=== PATIENT | male | born 1965 | race Caucasian/White ===

== ENCOUNTER 2016-07-19 00:50 | Inpatient (IN) | payer MEDICAID ==
[2016-07-19] MEDS ORDERED: LORazepam 2 MG/ML INJ IVP ONE (01:02)
[2016-07-19] MEDS ORDERED: LORazepam 2 MG/ML INJ ONE (01:03)
[2016-07-19] MEDS ORDERED: ONDANSETRON 4 MG/2 ML VIAL IVP ONE (01:04)
[2016-07-19] MEDS ORDERED: NS 1,000 ML IV ONE (01:04)
[2016-07-19] MEDS ORDERED: ONDANSETRON 4 MG/2 ML VIAL ONE (01:05)
--- NOTE | 2016-07-19 01:11 | EDPHY ---
H & P Source: Patient, Family HPI/ROS: CHIEF COMPLAINT: Nausea, vomiting, abdominal pain HISTORY OF PRESENT ILLNESS: One-day history of persistent vomiting, 25 times, along with abdominal pain. Moderate to severe complaints that have steadily worsened. No hematemesis or hematochezia. Associated constipation. No fever chills. Patient admits to heavy vodka intake daily, but has been unable to keep anything down due to this. He does report some tremulous activity. No seizure-like activity. No headache. No chest pain or shortness of breath. No other associated complaints or modifying factors. REVIEW OF SYSTEMS: Ten systems reviewed and are negative unless otherwise noted in the HPI EXAMINATION: General Appearance: Alert, no distress , mild tremor Head: normocephalic, atraumatic Eyes: Pupils equal and round, no conjunctival pallor or injection ENT, Mouth: Mucous membranes moist Neck: Normal inspection, supple, non-tender Respiratory: scattered rhonchi. No consolidation Cardiovascular: Regular rate and rhythm Gastrointestinal: Abdomen is soft with moderate tenderness generalized, worse in the epigastrium. No tympany. No rigidity. mild guarding.Non-acute abdomen. Back: non-tender, no bony abnormalities Neurological: A&O, nonfocal, Mild tremor Skin: Warm and dry, no rash Extremities: Nontender, no pedal edema Psychiatric: Mood and affect normal DIFFERENTIAL DIAGNOSES: Including but not limited to acute pancreatitis, alcoholic gastritis, cirrhosis , colitis, diverticulitis, enteritis MDM: acute alcoholic pancreatitis with transaminitis, hyperbilirubinemia, thrombocytopenia, acute kidney injury. The patient is dehydrated clinically and by laboratory studies. Has significant tenderness to palpation of the abdomen indicated given the elevated creatinine, we will obtain a CT scan of the abdomen and pelvis without IV contrast. He remains hemodynamically stable. He is neither tachycardic nor tachypneic. He is normotensive. He is in no acute distress. At this time, Dr. Milan will assume Care of the patient. Please see her note for final disposition. Plan for admission to the hospital following CT scan SUPERVISION: Patient was evaluated in conjunction with the supervising physician. Please see their note for details. (Carlos Preston) Constitutional: Initial Vital Signs Temperature (C) 36.6 C 07/19/16 01:09 Heart Rate 103 H 07/19/16 01:09 Respiratory Rate 20 07/19/16 01:09 Blood Pressure 127/82 H 07/19/16 01:09 O2 Sat (%) 98 07/19/16 01:09 O2 Delivery Mode Nasal Cannula O2 (L/minute) 2 Allergies/Adverse Reactions: No Known Allergies Allergy (Unverified 07/19/16 01:08) Home Medications: Medication Instructions Recorded Advair 250/50 (*) 07/19/16 Chantix 1MG (*) 07/19/16 Citalopram 07/19/16 Oxycodone HCl 07/19/16 Ventolin Hfa Inhaler 07/19/16 traZODone 07/19/16 Medical Decision Making - Diagnostics Imaging: CT scan with IV contrast shows fatty liver, pancreas with calcifications without any inflammation, discussed with Dr. Philip Uriostegui of Radiology. (Elvira Milan) ED Course/Re-evaluation: ED PA DICTATION I evaluated and participated in the management of the patient. I also evaluated the patient independently. My co-signature indicates that I have reviewed this chart and I agree with the findings and plan of care as documented. My personal H&P findings include: 51-year-old man with heavy alcohol use who presents with abdominal pain, nausea and vomiting. Labs revealing alcoholic ketoacidosis and possibly pancreatitis. CT scan obtained shows fatty liver without any overt signs of acute pancreatitis. He will be admitted to the hospitalist service for IV hydration and pain control. I have discussed the case with Betzy lawrence who will admit him. (Elvira Milan) - Data Points Laboratory Results: Laboratory Results 07/19/16 01:14 07/19/16 01:14 07/19/16 01:14 WBC 7.26 10^3/uL (3.80-9.50) RBC 3.69 L 10^6/uL (4.40-6.38) Hgb 14.2 g/dL (13.7-17.5) Hct 38.6 L % (40.0-51.0) MCV 104.6 H fL (81.5-99.8) MCH 38.5 H pg (27.9-34.1) MCHC 36.8 H g/dL (32.4-36.7) RDW 11.9 % (11.5-15.2) Plt Count 55 L 10^3/uL (150-400) MPV 10.3 fL (8.7-11.7) Neut % (Auto) 83.7 H % (39.3-74.2) Lymph % (Auto) 4.5 L % (15.0-45.0) [place] % (Auto) 10.7 % (4.5-13.0) Eos % (Auto) 0.0 L % (0.6-7.6) Baso % (Auto) 0.4 % (0.3-1.7) Nucleat RBC Rel Count 0.0 % (0.0-0.2) Absolute Neuts (auto) 6.07 10^3/uL (1.70-6.50) Absolute Lymphs (auto) 0.33 L 10^3/uL (1.00-3.00) Absolute Monos (auto) 0.78 10^3/uL (0.30-0.80) Absolute Eos (auto) 0.00 L 10^3/uL (0.03-0.40) Absolute Basos (auto) 0.03 10^3/uL (0.02-0.10) Absolute Nucleated RBC 0.00 10^3/uL (0-0.01) Immature Gran % 0.7 % (0.0-1.1) Immature Gran # 0.05 10^3/uL (0.00-0.10) PT 14.2 SEC (12.0-15.0) INR 1.11 (0.83-1.16) APTT 28.0 SEC (23.0-38.0) Sodium 131 L mEq/L (134-144) Potassium 3.8 mEq/L (3.5-5.2) Chloride 74 L mEq/L (97-110) Carbon Dioxide 19 L mEq/l (22-31) Anion Gap 38 mEq/L (8-16) BUN 32 H mg/dL (7-23) Creatinine 1.7 H mg/dL (0.7-1.3) Estimated GFR 42 Glucose 286 H mg/dL (70-100) Calcium 8.1 L mg/dL (8.5-10.4) Total Bilirubin 4.1 H mg/dL (0.1-1.4) Conjugated Bilirubin 2.4 H mg/dL (0.0-0.5) Unconjugated Bilirubin 1.7 H mg/dL (0.0-1.1) AST 406 H IU/L (17-59) ALT 116 H IU/L (21-72) Alkaline Phosphatase 125 IU/L (38-126) Total Protein 7.3 g/dL (6.3-8.2) Albumin 4.6 g/dL (3.5-5.0) Lipase 1299.0 H IU/L (23-300) Medications Given: Discontinued Medications Fentanyl (Sublimaze) 75 mcg IV EDNOW ONE Stop: 07/19/16 01:45 Last Admin: 07/19/16 02:03 Dose: 75 mcg Sodium Chloride (Ns) 1,000 mls @ 0 mls/hr IV ONCE ONE PRN Reason: Wide Open Stop: 07/19/16 01:05 Last Admin: 07/19/16 01:15 Dose: 1,000 mls Lorazepam (Ativan Injection) 1 mg IVP EDNOW ONE Stop: 07/19/16 01:03 Last Admin: 07/19/16 01:23 Dose: 1 mg Morphine Sulfate (Morphine) 4 mg IVP EDNOW ONE Stop: 07/19/16 02:58 Last Admin: 07/19/16 03:08 Dose: 4 mg Ondansetron HCl (Zofran) 4 mg IVP EDNOW ONE Stop: 07/19/16 01:05 Last Admin: 07/19/16 01:23 Dose: 4 mg Departure - Departure Disposition: [facility] Inpatient Acute Clinical Impression: Transaminitis, Hyperbilirubinemia, Thrombocytopenia, Fatty liver, Alcoholic ketoacidosis Alcohol dependence Qualifiers: Substance use status: unspecified alcohol-induced disorder Qualifier Code: ( F10.29) Alcohol dependence with unspecified alcohol-induced disorder Abdominal pain Qualifiers: Abdominal location: generalized Qualifier Code: (R10.84) Generalized abdominal pain Nausea and vomiting Qualifiers: Vomiting type: bilious vomiting Qualifier Code: (R11.14) Bilious vomiting Alcoholic pancreatitis Qualifiers: Chronicity: acute Acute pancreatitis complication: unspecified Qualifier Code: (K85.20) Alcohol induced acute pancreatitis without necrosis or infection Condition: Fair
[2016-07-19 01:21] LABS: % IMMATURE GRANULYOCYTES 0.7 % (0.0-1.1); ABSOLUTE IMMATURE GRANULOCYTES 0.05 10^3/uL (0.00-0.10); ADD DIFF? NO; ADD MORPH? NO; ADD SCAN? NO; ATYPICAL LYMPHOCYTE FLAG 0 (0-99); FRAGMENT RBC FLAG 0 (0-99); HEMATOCRIT 38.6 % (40.0-51.0); HEMOGLOBIN 14.2 g/dL (13.7-17.5); LEFT SHIFT FLG 20 (0-99); LIPEMIA HEMOLYSIS FLAG 90 (0-99); MEAN CELL HEMOGLOBIN 38.5 pg (27.9-34.1); MEAN CELL HEMOGLOBIN CONCENTR. 36.8 g/dL (32.4-36.7); MEAN CELL VOLUME 104.6 fL (81.5-99.8); MEAN PLATELET VOLUME 10.3 fL (8.7-11.7); PLATELET CLUMPS FLAG 0 (0-99); PLATELET COUNT 55 10^3/uL (150-400); RED BLOOD CELL COUNT 3.69 10^6/uL (4.40-6.38); RED CELL DISTRIBUTION WIDTH 11.9 % (11.5-15.2)
[2016-07-19 01:33] LABS: ALANINE AMINOTRANSFERASE 116 IU/L (21-72); ALBUMIN 4.6 g/dL (3.5-5.0); ALKALINE PHOSPHATASE 125 IU/L (38-126); ANION GAP 38 mEq/L (8-16); ASPARTATE AMINOTRANSFERASE 406 IU/L (17-59); BILIRUBIN,TOTAL 4.1 mg/dL (0.1-1.4); BILIRUBIN-CONJUGATED 2.4 mg/dL (0.0-0.5); BILIRUBIN-UNCONJUGATED 1.7 mg/dL (0.0-1.1); CALCIUM 8.1 mg/dL (8.5-10.4); CARBON DIOXIDE 19 mEq/l (22-31); CHLORIDE 74 mEq/L (97-110); CREATININE 1.7 mg/dL (0.7-1.3); GLOMERULAR FILTRATION RATE 42; GLUCOSE 286 mg/dL (70-100); POTASSIUM 3.8 mEq/L (3.5-5.2); SODIUM 131 mEq/L (134-144); TOTAL PROTEIN 7.3 g/dL (6.3-8.2)
[2016-07-19 01:43] LABS: INR 1.11 (0.83-1.16); PROTIME(PATIENT) 14.2 SEC (12.0-15.0)
[2016-07-19] MEDS ORDERED: fentaNYL 100 MCG/2 ML INJ IV ONE (01:44)
[2016-07-19] MEDS ORDERED: ALBUTEROL 3 ML DEYVIAL IH PRN (04:12)
[2016-07-19] MEDS ORDERED: LORazepam 2 MG/ML INJ IVP PRN (04:19)
[2016-07-19] MEDS ORDERED: THIAMINE HCL 500 MG in NS 100 ML IV ONE (04:19)
--- NOTE | 2016-07-19 04:27 | PDGENHP ---
History and Physical - Chief Complaint vomiting - History of Present Illness Patient is 51/M with chronic alcohol use, COPD/asthma and depression who presents to the ED complaining of nausea and vomiting. On the day prior to presentation, patient reports feeling generalized malaise, but had normal p.o. intake and consumed is normal amount of vodka without incident. This morning he woke up with acute onset nausea and vomiting. He reports vomiting many times throughout the day (>15x) described as nonbloody and nonbilious, associated with mild epigastric and right upper quadrant abdominal pain. He he denies any associated fevers, chills, diarrhea. Over the course of the day he also developed a cough and sore throat. He reports pain with swallowing, which has made it difficult for him to swallow. He has been unable to maintain any p. O. intake throughout the day, so he decided to come to the ED for further evaluation. He denies any prior history of pancreatitis, reports daily continues alcohol use and had a history of withdrawal seizure about 3 years ago. On arrival to the ED patient was afebrile and hemodynamically stable. Labs revealed transaminitis, elevated lipase, elevated bilirubin and elevated BUN/ creatinine. He was given IV fluid hydration and pain control. CT abdomen pelvis was then obtained and revealed stigmata of chronic pancreatitis, but no fluid collection or free air. He was then admitted to the hospitalist service for further management. History Information - Allergies/Home Medication List Allergies/Adverse Reactions: No Known Allergies Allergy (Unverified 07/19/16 01:08) Home Medications: Advair 250/50 (*) 07/19/16 [Last Taken Unknown] Chantix 1MG (*) 07/19/16 [Last Taken Unknown] Citalopram 07/19/16 [Last Taken Unknown] Oxycodone HCl 07/19/16 [Last Taken Unknown] Ventolin Hfa Inhaler 07/19/16 [Last Taken Unknown] traZODone 07/19/16 [Last Taken Unknown] I have personally reviewed and updated: family history, medical history, social history, surgical history - Past Medical History Additional medical history: COPD/asthma. Chronic continuous alcohol use. Major depression - Surgical History Additional surgical history: Knee surgery - Family History Additional family history: ETOH use - Social History Smoking Status: Light smoker (Normally about 2 PPD x > 20 yrs, however actively trying to quit, now down to 2-5 cigarettes daily) Alcohol Use: Heavy (reports drinking about 10oz of vodka daily) Review of Systems ROS: 10pt was reviewed & negative except for what was stated in HPI & below Physical Exam Temp Pulse Resp BP Pulse Ox 36.9 C 106 H 18 127/92 H 90 L 07/19/16 04:22 07/19/16 04:22 07/19/16 04:22 07/19/16 04:22 07/19/16 04:22 O2 (L/minute) 0 Constitutional: no apparent distress, not in pain, other (thin) Eyes: PERRL, anicteric sclera, EOMI Ears, Nose, Mouth, Throat: hearing normal, ears appear normal, no oral mucosal ulcers, dry mucous membranes Cardiovascular: regular rate and rhythym, no murmur, rub, or gallop, pulses symmetric bilaterally, tachycardia, No JVD, No edema Peripheral Pulses: 2+: dorsalis-pedis (R), dorsalis-pedis (L) Respiratory: no respiratory distress, no rales or rhonchi, expiratory wheeze Gastrointestinal: normoactive bowel sounds, soft, non-tender abdomen, no palpable masses, hepatosplenomegally, No tenderness, No guarding, No rebound Genitourinary: no bladder fullness, no bladder tenderness Skin: warm, normal color, no rashes or abrasions, no fluctuance, other (tattoos ), No mottled Musculoskeletal: full muscle strength, no muscle tenderness, normal joint ROM, no joint effusions Neurologic: AAOx3, sensation intact bilaterally, CN II-XII Intact, No weakness, No numbness, No pronator drift Psychiatric: interacting appropriately, not anxious, not encephalopathic, thought process linear Lab Data & Imaging Review 07/19/16 01:14 07/19/16 01:14 WBC 7.26 10^3/uL (3.80-9.50) 07/19/16 01:14 RBC 3.69 10^6/uL (4.40-6.38) L 07/19/16 01:14 Hgb 14.2 g/dL (13.7-17.5) 07/19/16 01:14 Hct 38.6 % (40.0-51.0) L 07/19/16 01:14 MCV 104.6 fL (81.5-99.8) H 07/19/16 01:14 MCH 38.5 pg (27.9-34.1) H 07/19/16 01:14 MCHC 36.8 g/dL (32.4-36.7) H 07/19/16 01:14 RDW 11.9 % (11.5-15.2) 07/19/16 01:14 Plt Count 55 10^3/uL (150-400) L 07/19/16 01:14 MPV 10.3 fL (8.7-11.7) 07/19/16 01:14 Neut % (Auto) 83.7 % (39.3-74.2) H 07/19/16 01:14 Lymph % (Auto) 4.5 % (15.0-45.0) L 07/19/16 01:14 [place] % (Auto) 10.7 % (4.5-13.0) 07/19/16 01:14 Eos % (Auto) 0.0 % (0.6-7.6) L 07/19/16 01:14 Baso % (Auto) 0.4 % (0.3-1.7) 07/19/16 01:14 Nucleat RBC Rel Count 0.0 % (0.0-0.2) 07/19/16 01:14 Absolute Neuts (auto) 6.07 10^3/uL (1.70-6.50) 07/19/16 01:14 Absolute Lymphs (auto) 0.33 10^3/uL (1.00-3.00) L 07/19/16 01:14 Absolute Monos (auto) 0.78 10^3/uL (0.30-0.80) 07/19/16 01:14 Absolute Eos (auto) 0.00 10^3/uL (0.03-0.40) L 07/19/16 01:14 Absolute Basos (auto) 0.03 10^3/uL (0.02-0.10) 07/19/16 01:14 Absolute Nucleated RBC 0.00 10^3/uL (0-0.01) 07/19/16 01:14 Immature Gran % 0.7 % (0.0-1.1) 07/19/16 01:14 Immature Gran # 0.05 10^3/uL (0.00-0.10) 07/19/16 01:14 PT 14.2 SEC (12.0-15.0) 07/19/16 01:14 INR 1.11 (0.83-1.16) 07/19/16 01:14 APTT 28.0 SEC (23.0-38.0) 07/19/16 01:14 Sodium 131 mEq/L (134-144) L 07/19/16 01:14 Potassium 3.8 mEq/L (3.5-5.2) 07/19/16 01:14 Chloride 74 mEq/L (97-110) L 07/19/16 01:14 Carbon Dioxide 19 mEq/l (22-31) L 07/19/16 01:14 Anion Gap 38 mEq/L (8-16) 07/19/16 01:14 BUN 32 mg/dL (7-23) H 07/19/16 01:14 Creatinine 1.7 mg/dL (0.7-1.3) H 07/19/16 01:14 Estimated GFR 42 07/19/16 01:14 Glucose 286 mg/dL (70-100) H 07/19/16 01:14 Calcium 8.1 mg/dL (8.5-10.4) L 07/19/16 01:14 Total Bilirubin 4.1 mg/dL (0.1-1.4) H 07/19/16 01:14 Conjugated Bilirubin 2.4 mg/dL (0.0-0.5) H 07/19/16 01:14 Unconjugated Bilirubin 1.7 mg/dL (0.0-1.1) H 07/19/16 01:14 AST 406 IU/L (17-59) H 07/19/16 01:14 ALT 116 IU/L (21-72) H 07/19/16 01:14 Alkaline Phosphatase 125 IU/L (38-126) 07/19/16 01:14 Total Protein 7.3 g/dL (6.3-8.2) 07/19/16 01:14 Albumin 4.6 g/dL (3.5-5.0) 07/19/16 01:14 Lipase 1299.0 IU/L (23-300) H 07/19/16 01:14 Visualized and Interpreted imaging results: Yes Interpretation: CT abd/pelvis: fatty liver, pancreatic calcifications Assessment & Plan Assessment: Patient is a 51-year-old male with history of depression, asthma/COPD, chronic continuous alcohol use who presents to the ED with 1 day of nausea and vomiting , ED workup reveals acute pancreatitis. Plan: # nausea, vomiting; acute pancreatitis Likely due to acute pancreatitis, but viral gastritis also possibly contributing. Chronic alcohol use likely the precipitant, but patient is describing mostly right-sided abdominal pain. Given the transaminitis and hyperbilirubinemia, will also check abdominal US to r/o biliary pathology/ stone. - npo - IVF hydration: NS @ 150 cc/hr - pain control prn - abdominal US - zofran prn n/v # sore throat, cough Pt now describes new onset pain with swallowing, likely related to significant amount of vomiting throughout the day. No obvious thrush/ulcer on oral exam. Patient has also developed a cough with this, especially after trying to swallow , concerning for aspiration. Will check CXR to r/o aspiration, obtain sp/sw eval and maintain NPO. - sp/sw eval - f/u cxr # thrombocytopenia Likely chronic and related to alcohol use and likely underlying liver disease. No obvious signs of bleeding on presentation, will given ppi and monitor CBC. # chronic, continuous alcohol use Last intake was 07/18. Patient not obviously withdrawing on my evaluation, but does have a history of withdrawal that did result in seizure several years ago. Will monitor on ciwa. - CIWA protocol - lorazepam prn - thiamine/folate/mvn - maalox prn # COPD/Asthma Respiratory status currently stable, but patient does have a few scattered wheezes present. Will cont home advair and provide duonebs prn. F/u cxr. # chronic tobacco use Patient currently trying to quit, was recently prescribed chantix for this. Given possible withdrawal seizure risk, will hold chantix while inpatient and provide nicotine patch. # dispo: admit to inpt service for > 2 [place] stay # gen NPO DVT ppx: SCDs Full code
[2016-07-19] MEDS: NS 1,000 ML IV SCH ×2 (05:04→22:25)
[2016-07-19] MEDS: IPRATROPIUM/ALBUTEROL 3 ML DEYVIAL IH SCH ×4 (05:45→23:18)
[2016-07-19 06:57] LABS: % IMMATURE GRANULYOCYTES 0.3 % (0.0-1.1); ABSOLUTE IMMATURE GRANULOCYTES 0.01 10^3/uL (0.00-0.10); ADD DIFF? NO; ADD MORPH? NO; ADD SCAN? NO; ATYPICAL LYMPHOCYTE FLAG 0 (0-99); FRAGMENT RBC FLAG 0 (0-99); HEMATOCRIT 34.3 % (40.0-51.0); HEMOGLOBIN 12.8 g/dL (13.7-17.5); LEFT SHIFT FLG 60 (0-99); LIPEMIA HEMOLYSIS FLAG 90 (0-99); MEAN CELL HEMOGLOBIN CONCENTR. 37.3 g/dL (32.4-36.7); MEAN CELL VOLUME 104.6 fL (81.5-99.8); MEAN PLATELET VOLUME 11.1 fL (8.7-11.7); PLATELET CLUMPS FLAG 0 (0-99); RED BLOOD CELL COUNT 3.28 10^6/uL (4.40-6.38); RED CELL DISTRIBUTION WIDTH 11.9 % (11.5-15.2)
[2016-07-19 06:59] LABS: PLATELET COUNT 38 10^3/uL (150-400)
[2016-07-19 07:04] LABS: INR 1.08 (0.83-1.16); PROTIME(PATIENT) 13.9 SEC (12.0-15.0)
[2016-07-19 07:05] LABS: APTT 29.4 SEC (23.0-38.0)
[2016-07-19 07:07] LABS: ALANINE AMINOTRANSFERASE 100 IU/L (21-72); ALBUMIN 3.8 g/dL (3.5-5.0); ALKALINE PHOSPHATASE 99 IU/L (38-126); ANION GAP 22 mEq/L (8-16); ASPARTATE AMINOTRANSFERASE 300 IU/L (17-59); BILIRUBIN,TOTAL 2.8 mg/dL (0.1-1.4); CALCIUM 7.4 mg/dL (8.5-10.4); CARBON DIOXIDE 25 mEq/l (22-31); CHLORIDE 83 mEq/L (97-110); CREATININE 1.6 mg/dL (0.7-1.3); GLOMERULAR FILTRATION RATE 45; GLUCOSE 231 mg/dL (70-100); MAGNESIUM 1.8 mg/dL (1.6-2.3); POTASSIUM 3.4 mEq/L (3.5-5.2); SODIUM 130 mEq/L (134-144); TOTAL PROTEIN 6.3 g/dL (6.3-8.2)
[2016-07-19 07:35] LABS: PLATELET ESTIMATE DECREASED (ADEQ)
[2016-07-19 07:59] LABS: BILIRUBIN-CONJUGATED 1.8 mg/dL (0.0-0.5)
[2016-07-19 08:34] LABS: COLOR AMBER; LEUKOCYTE ESTERASE,URINE NEGATIVE (NEGATIVE); NITRITE,URINE NEGATIVE (NEGATIVE)
[2016-07-19 08:38] LABS: MUCUS TRACE /lpf (NONE-1+)
[2016-07-19 08:39] LABS: HYALINE CASTS 25-50 /lpf (0-1)
--- NOTE | 2016-07-19 08:41 | US ---
Sonography Limited to the Right Upper Quadrant of the Abdomen Clinical History: 51-year-old male admitted earlier this morning with alcoholic ketoacidosis and panc reatitis. Evaluate the liver and biliary tree. Technique: A curvilinear 5 MHz transducer was used to sonographically evaluate the right upper quadra nt of the abdomen. Color Doppler was also used. Comparison Study: Unenhanced CT scan of the abdomen performed earlier this morning at 1:55 a.m. Findings: The pancreas is seen in a limited fashion because of overlying bowel gas. The CT scan earli er today demonstrated calcifications in the pancreas, consistent with chronic pancreatitis. There is no peripancreatic fluid collection appreciated. The abdominal aorta is normal in size, and tapers nor hussain. The visualized IVC is normal in caliber. The main portal vein is patent. There is hepatopetal flow identified. The liver is enlarged, measuring 22.7 cm along the right midaxillary line and there is diffuse increased echogenicity, consistent with advanced steatosis. There is no focal hepatic mass observed. There is no intrahepatic bile duct dilatation, although the common bile duct measures up t o 13 mm in diameter. There is no choledocholithiasis. The gallbladder is moderately distended with no stones, sludge, wall thickening, pericholecystic fluid, or sonographic Bridges sign. There is no asci milo or right pleural effusion. The right kidney is normal, measuring 11.2 x 4.8 x 5.7 cm. The right r enal cortex measures 1.3 cm. There is no hydronephrosis or focal renal mass. Impression: 1. Suboptimal assessment of the pancreas in this patient with CT evidence of chronic pancreatitis and biochemical evidence of acute pancreatitis. 2. Hepatomegaly with diffuse advanced steatosis. 3. There is no intrahepatic bile duct dilatation, although there is enlargement of the common bile du ct, measuring 13 mm (of unclear etiology). There is no choledocholithiasis, cholelithiasis, or eviden ce of cholecystitis.
--- NOTE | 2016-07-19 08:48 | DX ---
Portable AP Upright Chest July 19, 2016 at 6:36 a.m. Clinical History: 51-year-old male with a productive cough and episodes of vomiting; rule out aspirat ion. The patient was admitted earlier this morning with an alcoholic ketoacidosis and an acute pancre atitis. Comparison Study: CT scan of the abdomen which included the lung bases, performed at 1:55 this jose banegas Findings: Oxygen tubing and telemetry monitoring lead lines are present. The cardiac and mediastinal silhouettes are normal in size. There is some mild central perihilar bronchial wall thickening. The l ungs are mildly hyperexpanded with some attenuation of the upper lobe vasculature suggestive of some underlying COPD. There is no focal alveolar consolidation, pleural effusion, peripheral interstitial edema, or pneumothorax. There is a skin fold in the right upper chest with lung markings seen periphe rally. The trachea is midline. There are old healed fracture deformities associated with the right 7t h and 8th posterior ribs. There is some osseous superimposition where the right 4th anterior rib cros ses the caudal tip of the scapula near the old right 7th rib fracture site. Impression: Perihilar bronchial wall thickening, with no convincing focal infiltrate. Should there be progression of the patient's symptoms, repeat views in the department to include PA a nd lateral upright images are suggested.
[2016-07-19] MEDS ORDERED: ENOXAPARIN 40 MG/0.4 ML SYR SC SCH (09:00)
[2016-07-19] MEDS ORDERED: MULTIVITAMINS 1 EACH TAB PO SCH (09:00)
[2016-07-19] MEDS ORDERED: CEPACOL LOZENGE PO ONE (09:52)
[2016-07-19] MEDS: NICOTINE 14 MG/24 HR PATCH TD SCH (09:53)
[2016-07-19] MEDS: PANTOPRAZOLE SODIUM 40 MG TAB PO SCH (09:54)
[2016-07-19] MEDS: FOLIC ACID 1 MG TAB PO SCH (09:54)
[2016-07-19] MEDS ORDERED: CEPACOL LOZENGE PO PRN (10:01)
[2016-07-19] MEDS: ONDANSETRON 4 MG/2 ML VIAL IVP PRN ×2 (10:17→14:19)
--- NOTE | 2016-07-19 10:58 | CT ---
CT Scan of the Abdomen and Pelvis With Contrast Indication: Diffuse abdominal pain with nausea and vomiting in a 51-year-old male with a clinical his tory of alcoholism. Technique: Multidetector CT images of the abdomen and pelvis were obtained following the uneventful i ntravenous administration of 90 mL Isovue-300 contrast. No oral contrast was administered. Axial imag es are obtained at 5 mm intervals and reformatted at 1.5 mm thickness. The examination is reviewed on the workstation at multiple window/level settings. Sagittal and coronal reformations are performed. Dose reduction techniques were utilized for this examination. Abdomen: Lung bases: Normal. No pleural fluid. Liver: The liver is enlarged and shows pronounced low-attenuation consistent with steatosis. No focal hepatic abnormality is identified.. Biliary system: Normal gallbladder. No intra or extrahepatic dilatation. Spleen: Normal. Pancreas: Extensive pancreatic calcification is seen consistent with chronic pancreatitis. There are no findings to suggest acute pancreatitis.. Adrenals: Normal. Kidneys: No obstruction or solid masses. Abdominal Aorta: No aneurysm. No bowel obstruction, ascites, or retroperitoneal lymphadenopathy. CT Pelvis Findings: No free fluid is identified. Mild prostatic enlargement is noted. Degenerative ch anges are seen in the spine. The urinary bladder is not well-distended and is therefore not well eval uated on this study. Impression: 1. Hepatic steatosis and stigmata of chronic pancreatitis evidenced by diffuse pancreatic calcificati on. 2. No acute abdominal or pelvic abnormality. 3. See above report for additional findings. The study was performed as an emergency on-call case and discussed by telephone with Dr. Milan at 0 230 hours. The final interpretation is concordant with the original communication.
[2016-07-19] MEDS ORDERED: ALBUTEROL 60 PUFFS/8 GM MDI IH PRN (11:31)
--- NOTE | 2016-07-19 11:36 | HOSPPROG ---
Hospitalist Progress Note Assessment/Plan: Assessment: Patient is a 51-year-old male with history of depression, asthma/COPD, chronic continuous alcohol use who presents to the ED with 1 day of nausea and vomiting , ED workup reveals acute pancreatitis. Plan: # nausea, vomiting; acute pancreatitis (improving) Likely due to acute pancreatitis, but viral gastritis also possibly contributing. Chronic alcohol use likely the precipitant, but patient is describing mostly right-sided abdominal pain. Given the transaminitis and hyperbilirubinemia, will also check abdominal US to r/o biliary pathology/ stone. - advance diet -cont ivf for now # sore throat, cough Pt now describes new onset pain with swallowing, likely related to significant amount of vomiting throughout the day. No obvious thrush/ulcer on oral exam. Patient has also developed a cough with this, especially after trying to swallow , concerning for aspiration. Will check CXR to r/o aspiration, obtain sp/sw eval and maintain NPO. - sp/sw eval - f/u cxr # thrombocytopenia Likely chronic and related to alcohol use and likely underlying liver disease. No obvious signs of bleeding on presentation, will given ppi and monitor CBC. # chronic, continuous alcohol use Last intake was 07/18. Patient not obviously withdrawing on my evaluation, but does have a history of withdrawal that did result in seizure several years ago. Will monitor on ciwa. - CIWA protocol - change lorazepam prn to prn librium - thiamine/folate/mvn - maalox prn # COPD/Asthma Respiratory status currently stable, but patient does have a few scattered wheezes present. Will cont home advair and provide duonebs prn. F/u cxr. # chronic tobacco use Patient currently trying to quit, was recently prescribed chantix for this. Given possible withdrawal seizure risk, will hold chantix while inpatient and provide nicotine patch. # dispo: admit to inpt service for > 2 [place] stay # gen NPO DVT ppx: SCDs Full code Subjective: improving abd pain. wants to eat. reports sore throat Objective: Vital Signs Temp Pulse Resp BP Pulse Ox 36.8 C 97 16 119/80 93 07/19/16 11:02 07/19/16 11:02 07/19/16 11:02 07/19/16 11:02 07/19/16 11:02 Laboratory Results 07/19/16 06:49 07/19/16 06:49 07/18/16 07/19/16 07/20/16 05:59 05:59 05:59 Intake Total 350 Balance 350 PT 13.9 SEC (12.0-15.0) 07/19/16 06:49 INR 1.08 (0.83-1.16) 07/19/16 06:49 - Physical Exam Constitutional: chronically ill appearing Cardiovascular: regular rate and rhythym, no murmur, rub, or gallop Respiratory: no respiratory distress, no rales or rhonchi, clear to auscultation Gastrointestinal: normoactive bowel sounds, soft, non-tender abdomen, no palpable masses, No guarding, No rebound ICD10 Worksheet Patient Problems: Problems Problem Status Diagnosed Abdominal pain Acute Alcohol dependence Acute Alcoholic ketoacidosis Acute Alcoholic pancreatitis Acute Fatty liver Acute Hyperbilirubinemia Acute Nausea and vomiting Acute Thrombocytopenia Acute Transaminitis Acute
[2016-07-19] MEDS: oxyCODONE IR 5 MG TAB PO PRN ×2 (14:09→23:36)
[2016-07-19] MEDS: chlordiazePOXIDE 25 MG CAP PO PRN ×2 (14:09→21:11)
[2016-07-19] MEDS: ONDANSETRON DISINTEGRATING 4 MG TAB PO PRN (21:11)
[2016-07-19] MEDS: traZODone 100 MG TAB PO PRN (21:12)
[2016-07-19] MEDS: MAG HYDROX/AL HYDROX/SIMETH 30 ML UDCUP PO PRN (21:23)
[2016-07-19] MEDS: FLUTICASONE/SALMETER 250/50MCG DISKUS IH SCH (22:06)
[2016-07-20] MEDS: chlordiazePOXIDE 25 MG CAP PO PRN ×5 (01:27→21:16)
[2016-07-20] MEDS: IPRATROPIUM/ALBUTEROL 3 ML DEYVIAL IH SCH ×4 (05:08→20:29)
[2016-07-20 05:17] LABS: ANION GAP 9 mEq/L (8-16); CALCIUM 7.8 mg/dL (8.5-10.4); CARBON DIOXIDE 35 mEq/l (22-31); CHLORIDE 86 mEq/L (97-110); CREATININE 1.8 mg/dL (0.7-1.3); GLOMERULAR FILTRATION RATE 40; GLUCOSE 135 mg/dL (70-100); POTASSIUM 2.9 mEq/L (3.5-5.2); SODIUM 130 mEq/L (134-144)
[2016-07-20] MEDS: NS 1,000 ML IV SCH (05:34)
[2016-07-20] MEDS ORDERED: PROTOCOL POTASSIUM 1 DOSE MISC PRN (06:06)
[2016-07-20] MEDS ORDERED: PROTOCOL MAGNESIUM 1 DOSE IV PRN (06:06)
[2016-07-20] MEDS: THIAMINE HCL 500 MG in NS 100 ML IV SCH (08:04)
[2016-07-20] MEDS: CITALOPRAM 20 MG TAB PO SCH (08:09)
[2016-07-20] MEDS: PANTOPRAZOLE SODIUM 40 MG TAB PO SCH (08:09)
[2016-07-20] MEDS: MULTIVITAMINS 1 EACH TAB PO SCH (08:09)
[2016-07-20] MEDS: FOLIC ACID 1 MG TAB PO SCH (08:09)
[2016-07-20] MEDS: NICOTINE 14 MG/24 HR PATCH TD SCH (08:10)
[2016-07-20] MEDS: FLUTICASONE/SALMETER 250/50MCG DISKUS IH SCH ×2 (08:13→20:29)
[2016-07-20] MEDS ORDERED: POTASSIUM CL 10 MEQ TAB PO ONE ×3 (08:27→21:00)
[2016-07-20 10:05] LABS: ADD DIFF? YES; ADD MORPH? NO; ATYPICAL LYMPHOCYTE FLAG 0 (0-99); FRAGMENT RBC FLAG 0 (0-99); HEMATOCRIT 29.4 % (40.0-51.0); HEMOGLOBIN 10.6 g/dL (13.7-17.5); LIPEMIA HEMOLYSIS FLAG 90 (0-99); MEAN CELL HEMOGLOBIN 38.1 pg (27.9-34.1); MEAN CELL HEMOGLOBIN CONCENTR. 36.1 g/dL (32.4-36.7); MEAN CELL VOLUME 105.8 fL (81.5-99.8); MEAN PLATELET VOLUME 9.8 fL (8.7-11.7); PLATELET CLUMPS FLAG 10 (0-99); RED BLOOD CELL COUNT 2.78 10^6/uL (4.40-6.38); RED CELL DISTRIBUTION WIDTH 11.9 % (11.5-15.2)
[2016-07-20 10:09] LABS: LEFT SHIFT FLG 300 (0-99)
[2016-07-20 10:13] LABS: PLATELET COUNT 29 10^3/uL (150-400)
[2016-07-20 11:04] LABS: MACROCYTES 2+; PLATELET ESTIMATE DECREASED (ADEQ)
[2016-07-20 14:40] LABS: ADD SCAN? YES; SCAN POSITIVE
[2016-07-20] MEDS ORDERED: D5W 1/2 NS W/ 20 KCl/L 1,000 ML IV SCH (15:15)
--- NOTE | 2016-07-20 15:21 | HOSPPROG ---
Hospitalist Progress Note Assessment/Plan: * Acute on chronic pancreatitis due to Etoh -extensive pancreatic calcifications on CT -still feels poor - advance diet slowly -clear liquids * Etoh withdrawal -IV thiamine -Po librium * Severe protein calorie malnutrition -suspect malabsorption due to chronic pancreatitis -start enzymes * Severe sore throat/viral URI -check influenza * Pancytopenia - suspect BM suppression due to Etoh * Etoh hepatitis -abnormal LFT, AST/ALT ration c/w Etoh * Asthma -continue advair * Tobacco dependence -patch * ARF - suspect hypovolemia -continue IVF Subjective: No appetite, not eating anything. Sore throat remains Objective: Vital Signs Temp Pulse Resp BP Pulse Ox 37.7 C 101 H 20 108/58 L 90 L 07/20/16 11:47 07/20/16 11:47 07/20/16 11:47 07/20/16 11:47 07/20/16 11:47 Laboratory Results 07/20/16 09:51 07/20/16 03:50 07/19/16 07/20/16 07/21/16 05:59 05:59 05:59 Intake Total 350 2650 Output Total 625 Balance 350 5 PT 13.9 SEC (12.0-15.0) 07/19/16 06:49 INR 1.08 (0.83-1.16) 07/19/16 06:49 - Physical Exam Constitutional: no apparent distress, appears nourished, not in pain Cardiovascular: regular rate and rhythym, no murmur, rub, or gallop Respiratory: no respiratory distress, no rales or rhonchi, clear to auscultation Gastrointestinal: normoactive bowel sounds, soft, non-tender abdomen, no palpable masses Skin: no rashes or abrasions, no fluctuance, no induration Neurologic: AAOx3, sensation intact bilaterally Psychiatric: interacting appropriately, not anxious, not encephalopathic, thought process linear ICD10 Worksheet Patient Problems: Problems Problem Status Diagnosed Abdominal pain Acute Alcohol dependence Acute Alcoholic ketoacidosis Acute Alcoholic pancreatitis Acute Fatty liver Acute Hyperbilirubinemia Acute Nausea and vomiting Acute Thrombocytopenia Acute Transaminitis Acute
[2016-07-20] MEDS: NS W/ 20 KCl/L 1,000 ML IV SCH (16:34)
[2016-07-20] MEDS: CREON 12 CAP PO SCH (19:07)
[2016-07-20 19:22] LABS: POTASSIUM 2.8 mEq/L (3.5-5.2)
[2016-07-20] MEDS: oxyCODONE IR 5 MG TAB PO PRN (21:16)
[2016-07-20] MEDS: traZODone 100 MG TAB PO PRN (21:16)
[2016-07-20] MEDS: MAG HYDROX/AL HYDROX/SIMETH 30 ML UDCUP PO PRN (22:01)
[2016-07-21] MEDS: NS W/ 20 KCl/L 1,000 ML IV SCH ×2 (01:00→09:11)
[2016-07-21] MEDS: chlordiazePOXIDE 25 MG CAP PO PRN ×2 (04:04→19:41)
[2016-07-21 05:09] LABS: % IMMATURE GRANULYOCYTES 0.5 % (0.0-1.1); ABSOLUTE IMMATURE GRANULOCYTES 0.01 10^3/uL (0.00-0.10); ADD DIFF? NO; ADD MORPH? NO; ADD SCAN? YES; ATYPICAL LYMPHOCYTE FLAG 0 (0-99); FRAGMENT RBC FLAG 0 (0-99); HEMATOCRIT 27.7 % (40.0-51.0); HEMOGLOBIN 9.6 g/dL (13.7-17.5); LIPEMIA HEMOLYSIS FLAG 90 (0-99); MEAN CELL HEMOGLOBIN 37.2 pg (27.9-34.1); MEAN CELL HEMOGLOBIN CONCENTR. 34.7 g/dL (32.4-36.7); MEAN CELL VOLUME 107.4 fL (81.5-99.8); MEAN PLATELET VOLUME 10.4 fL (8.7-11.7); PLATELET CLUMPS FLAG 0 (0-99); RED BLOOD CELL COUNT 2.58 10^6/uL (4.40-6.38); RED CELL DISTRIBUTION WIDTH 11.9 % (11.5-15.2)
[2016-07-21 05:15] LABS: LEFT SHIFT FLG 190 (0-99)
[2016-07-21 05:17] LABS: PLATELET COUNT 28 10^3/uL (150-400)
[2016-07-21 05:34] LABS: ALANINE AMINOTRANSFERASE 65 IU/L (21-72); ALBUMIN 2.7 g/dL (3.5-5.0); ALKALINE PHOSPHATASE 78 IU/L (38-126); ANION GAP 8 mEq/L (8-16); ASPARTATE AMINOTRANSFERASE 94 IU/L (17-59); BILIRUBIN,TOTAL 1.1 mg/dL (0.1-1.4); BILIRUBIN-CONJUGATED 0.6 mg/dL (0.0-0.5); BILIRUBIN-UNCONJUGATED 0.5 mg/dL (0.0-1.1); CARBON DIOXIDE 31 mEq/l (22-31); CHLORIDE 98 mEq/L (97-110); CREATININE 1.3 mg/dL (0.7-1.3); GLOMERULAR FILTRATION RATE 58; GLUCOSE 102 mg/dL (70-100); MAGNESIUM 2.3 mg/dL (1.6-2.3); POTASSIUM 3.2 mEq/L (3.5-5.2); SODIUM 137 mEq/L (134-144)
[2016-07-21] MEDS: IPRATROPIUM/ALBUTEROL 3 ML DEYVIAL IH SCH ×5 (05:42→20:21)
[2016-07-21 06:10] LABS: SCAN POSITIVE
[2016-07-21 06:24] LABS: MACROCYTES 2+; PLATELET ESTIMATE DECREASED (ADEQ)
[2016-07-21] MEDS ORDERED: PROTOCOL K PHOSPHATE 1 DOSE IV PRN (08:26)
[2016-07-21] MEDS ORDERED: POTASSIUM CL 10 MEQ TAB PO ONE ×2 (08:59→18:54)
[2016-07-21] MEDS: MULTIVITAMINS 1 EACH TAB PO SCH (09:05)
[2016-07-21] MEDS: CITALOPRAM 20 MG TAB PO SCH (09:05)
[2016-07-21] MEDS: PANTOPRAZOLE SODIUM 40 MG TAB PO SCH (09:05)
[2016-07-21] MEDS: FOLIC ACID 1 MG TAB PO SCH (09:05)
[2016-07-21] MEDS: CREON 12 CAP PO SCH ×3 (09:06→19:41)
[2016-07-21] MEDS: NICOTINE 14 MG/24 HR PATCH TD SCH (09:06)
[2016-07-21] MEDS: THIAMINE HCL 500 MG in NS 100 ML IV SCH (10:19)
[2016-07-21] MEDS: FLUTICASONE/SALMETER 250/50MCG DISKUS IH SCH ×2 (11:00→20:21)
[2016-07-21] MEDS ORDERED: K PHOS 10 MMOL in D5W 250 ML IV ONE (12:00)
[2016-07-21] MEDS: AZITHROMYCIN 250 MG TAB PO SCH (14:50)
--- NOTE | 2016-07-21 14:53 | HOSPPROG ---
Hospitalist Progress Note Assessment/Plan: * Acute on chronic pancreatitis due to Etoh -extensive pancreatic calcifications on CT -improved - advance diet * Etoh withdrawal -IV thiamine -Po librium - wean * Severe protein calorie malnutrition -suspect malabsorption due to chronic pancreatitis -start enzymes * Acute bronchitis -azithromycin -hemoptysis - check CT chest -no identified TB risk factors -suspect acute bronchitis + low platelets as cause * Pancytopenia - suspect BM suppression due to Etoh * Etoh hepatitis -abnormal LFT, AST/ALT ration c/w Etoh * Asthma -continue advair * Tobacco dependence -patch * ARF - suspect hypovolemia -improved Subjective: Feeling hungry. Objective: Vital Signs Temp Pulse Resp BP Pulse Ox 37.1 C 90 18 122/86 H 95 07/21/16 11:19 07/21/16 11:19 07/21/16 11:19 07/21/16 11:19 07/21/16 11:19 Laboratory Results 07/21/16 03:58 07/21/16 03:58 07/20/16 07/21/16 07/22/16 05:59 05:59 05:59 Intake Total 2650 3180 Output Total 625 875 Balance 2024 2305 PT 13.9 SEC (12.0-15.0) 07/19/16 06:49 INR 1.08 (0.83-1.16) 07/19/16 06:49 - Physical Exam Constitutional: no apparent distress, appears nourished, not in pain Cardiovascular: regular rate and rhythym, no murmur, rub, or gallop Respiratory: no respiratory distress, no rales or rhonchi, clear to auscultation Gastrointestinal: normoactive bowel sounds, soft, non-tender abdomen, no palpable masses Skin: no rashes or abrasions, no fluctuance, no induration Neurologic: AAOx3, sensation intact bilaterally Psychiatric: interacting appropriately, not anxious, not encephalopathic, thought process linear ICD10 Worksheet Patient Problems: Problems Problem Status Diagnosed Abdominal pain Acute Alcohol dependence Acute Alcoholic ketoacidosis Acute Alcoholic pancreatitis Acute Fatty liver Acute Hyperbilirubinemia Acute Nausea and vomiting Acute Thrombocytopenia Acute Transaminitis Acute
[2016-07-21] MEDS ORDERED: IOPAMIDOL (ISOVUE-370) 150 ML BTL IV ONE (16:36)
[2016-07-21] MEDS: CALCIUM CARBONATE 500 MG CHEWABLE TAB PO PRN ×2 (17:55→19:41)
[2016-07-21] MEDS: oxyCODONE IR 5 MG TAB PO PRN (17:59)
[2016-07-21 18:06] LABS: POTASSIUM 3.6 mEq/L (3.5-5.2)
[2016-07-21] MEDS: ACETAMINOPHEN 325 MG TAB PO PRN (19:41)
[2016-07-22] MEDS: chlordiazePOXIDE 25 MG CAP PO PRN ×2 (01:00→12:55)
[2016-07-22] MEDS: IPRATROPIUM/ALBUTEROL 3 ML DEYVIAL IH SCH ×4 (04:21→22:46)
[2016-07-22 04:56] LABS: ADD DIFF? YES; ADD MORPH? NO; ADD SCAN? NO; ATYPICAL LYMPHOCYTE FLAG 0 (0-99); FRAGMENT RBC FLAG 0 (0-99); HEMATOCRIT 28.9 % (40.0-51.0); LEFT SHIFT FLG 60 (0-99); LIPEMIA HEMOLYSIS FLAG 90 (0-99); MEAN CELL HEMOGLOBIN 36.9 pg (27.9-34.1); MEAN CELL HEMOGLOBIN CONCENTR. 34.6 g/dL (32.4-36.7); MEAN CELL VOLUME 106.6 fL (81.5-99.8); MEAN PLATELET VOLUME 10.2 fL (8.7-11.7); PLATELET CLUMPS FLAG 10 (0-99); RED BLOOD CELL COUNT 2.71 10^6/uL (4.40-6.38); RED CELL DISTRIBUTION WIDTH 11.6 % (11.5-15.2)
[2016-07-22 05:02] LABS: PLATELET COUNT 35 10^3/uL (150-400)
[2016-07-22 05:25] LABS: ANION GAP 8 mEq/L (8-16); CALCIUM 8.4 mg/dL (8.5-10.4); CARBON DIOXIDE 28 mEq/l (22-31); CHLORIDE 101 mEq/L (97-110); CREATININE 0.9 mg/dL (0.7-1.3); GLOMERULAR FILTRATION RATE > 60; GLUCOSE 107 mg/dL (70-100); MAGNESIUM 2.1 mg/dL (1.6-2.3); POTASSIUM 3.7 mEq/L (3.5-5.2); SODIUM 137 mEq/L (134-144)
[2016-07-22 05:37] LABS: MACROCYTES 1+; PLATELET ESTIMATE DECREASED (ADEQ)
[2016-07-22] MEDS ORDERED: POTASSIUM CL 10 MEQ TAB PO ONE (07:33)
[2016-07-22] MEDS: FLUTICASONE/SALMETER 250/50MCG DISKUS IH SCH ×2 (09:11→22:46)
[2016-07-22] MEDS: PANTOPRAZOLE SODIUM 40 MG TAB PO SCH (09:20)
[2016-07-22] MEDS: MULTIVITAMINS 1 EACH TAB PO SCH (09:20)
[2016-07-22] MEDS: NICOTINE 14 MG/24 HR PATCH TD SCH (09:20)
[2016-07-22] MEDS: FOLIC ACID 1 MG TAB PO SCH (09:20)
[2016-07-22] MEDS: CREON 12 CAP PO SCH ×3 (09:20→17:50)
[2016-07-22] MEDS: CITALOPRAM 20 MG TAB PO SCH (09:20)
[2016-07-22] MEDS: THIAMINE HCL 100 MG TAB PO SCH (09:20)
[2016-07-22] MEDS: AZITHROMYCIN 250 MG TAB PO SCH (09:20)
[2016-07-22] MEDS: NS W/ 20 KCl/L 1,000 ML IV SCH (11:25)
[2016-07-22] MEDS ORDERED: K PHOS 10 MMOL in D5W 250 ML IV ONE (12:00)
[2016-07-22] MEDS: CALCIUM CARBONATE 500 MG CHEWABLE TAB PO PRN (12:55)
--- NOTE | 2016-07-22 16:42 | CT ---
CT Chest angiogram With Contrast July 21, 2016at 1708 hours Indication: Hemoptysis. Technique: Spiral images were obtained through the chest with the uneventful intravenous administr ation of 90 mL of Isovue-370. Images were reconstructed and reviewed in multiple planes. Dose reduc tion techniques were utilized. Comparison: Chest radiograph July 19, 2016. Findings: Lung and large airways: Mild bronchial wall thickening is present and there is bibasilar consolidatio n as well as a small area of consolidation in the posterior right upper lobe... Pleura: Normal. Vessels: No intraluminal filling defects to suggest pulmonary emboli. Aorta is grossly unremarkable. Great vessels are unremarkable. Limited examination the upper abdomen shows diffuse fatty infiltration of the liver. The spleen, adre nals, pancreas, and visualized kidneys are unremarkable. Skeletal system: Vertebral body heights are well-maintained. There are no lytic or sclerotic osseous lesions. Impression: 1. No evidence of pulmonary embolus 2. Patchy consolidation at both bases and in the posterior right upper lobe consistent with pneumonia . Adjacent bronchial wall thickening is present 3. Diffuse fatty infiltration of the liver.
--- NOTE | 2016-07-22 16:46 | HOSPPROG ---
Hospitalist Progress Note Assessment/Plan: * Acute on chronic pancreatitis due to Etoh -extensive pancreatic calcifications on CT -slow progress with diet * Etoh withdrawal -IV thiamine -Po librium - wean * Severe protein calorie malnutrition -suspect malabsorption due to chronic pancreatitis -start enzymes * Acute bronchitis -azithromycin -hemoptysis - CT chest pending -no identified TB risk factors -suspect acute bronchitis + low platelets as cause * Pancytopenia - suspect BM suppression due to Etoh * Etoh hepatitis -abnormal LFT, AST/ALT ration c/w Etoh * Asthma -continue advair * Tobacco dependence -patch * ARF - suspect hypovolemia -improved Subjective: Still abdominal pain, very anxious Objective: Vital Signs Temp Pulse Resp BP Pulse Ox 36.4 C 71 12 154/94 H 98 07/22/16 15:58 07/22/16 15:58 07/22/16 15:58 07/22/16 15:58 07/22/16 15:58 Laboratory Results 07/22/16 03:47 07/22/16 03:47 07/21/16 07/22/16 07/23/16 05:59 05:59 05:59 Intake Total 3180 2320 Output Total 875 400 550 Balance 2305 1920 -550 PT 13.9 SEC (12.0-15.0) 07/19/16 06:49 INR 1.08 (0.83-1.16) 07/19/16 06:49 - Physical Exam Constitutional: no apparent distress, appears nourished, not in pain Cardiovascular: regular rate and rhythym, no murmur, rub, or gallop Respiratory: no respiratory distress, no rales or rhonchi, clear to auscultation Gastrointestinal: normoactive bowel sounds, soft, non-tender abdomen, no palpable masses Skin: no rashes or abrasions, no fluctuance, no induration Neurologic: AAOx3, sensation intact bilaterally Psychiatric: interacting appropriately, not anxious, not encephalopathic, thought process linear ICD10 Worksheet Patient Problems: Problems Problem Status Diagnosed Abdominal pain Acute Alcohol dependence Acute Alcoholic ketoacidosis Acute Alcoholic pancreatitis Acute Fatty liver Acute Hyperbilirubinemia Acute Nausea and vomiting Acute Thrombocytopenia Acute Transaminitis Acute
[2016-07-22] MEDS: oxyCODONE IR 5 MG TAB PO PRN (17:57)
[2016-07-22 18:42] LABS: POTASSIUM 4.3 mEq/L (3.5-5.2)
[2016-07-22] MEDS: ACETAMINOPHEN 325 MG TAB PO PRN (19:41)
[2016-07-22] MEDS: ONDANSETRON DISINTEGRATING 4 MG TAB PO PRN (19:42)
[2016-07-22] MEDS: LORazepam 1 MG TAB PO PRN (20:09)
[2016-07-23] MEDS: LORazepam 1 MG TAB PO PRN (00:49)
[2016-07-23 05:10] LABS: ADD DIFF? YES; ADD MORPH? NO; ADD SCAN? NO; ATYPICAL LYMPHOCYTE FLAG 60 (0-99); FRAGMENT RBC FLAG 0 (0-99); HEMATOCRIT 29.3 % (40.0-51.0); HEMOGLOBIN 10.5 g/dL (13.7-17.5); LEFT SHIFT FLG 40 (0-99); LIPEMIA HEMOLYSIS FLAG 90 (0-99); MEAN CELL HEMOGLOBIN 37.2 pg (27.9-34.1); MEAN CELL HEMOGLOBIN CONCENTR. 35.8 g/dL (32.4-36.7); MEAN CELL VOLUME 103.9 fL (81.5-99.8); MEAN PLATELET VOLUME 12.5 fL (8.7-11.7); PLATELET CLUMPS FLAG 0 (0-99); RED BLOOD CELL COUNT 2.82 10^6/uL (4.40-6.38); RED CELL DISTRIBUTION WIDTH 11.4 % (11.5-15.2)
[2016-07-23 05:12] LABS: PLATELET COUNT 46 10^3/uL (150-400)
[2016-07-23 05:31] LABS: ANION GAP 5 mEq/L (8-16); CALCIUM 8.7 mg/dL (8.5-10.4); CARBON DIOXIDE 30 mEq/l (22-31); CHLORIDE 101 mEq/L (97-110); CREATININE 0.8 mg/dL (0.7-1.3); GLOMERULAR FILTRATION RATE > 60; GLUCOSE 108 mg/dL (70-100); MAGNESIUM 1.9 mg/dL (1.6-2.3); POTASSIUM 4.1 mEq/L (3.5-5.2); SODIUM 136 mEq/L (134-144)
[2016-07-23] MEDS: IPRATROPIUM/ALBUTEROL 3 ML DEYVIAL IH SCH ×4 (05:40→20:10)
[2016-07-23 06:25] LABS: GIANT PLATELETS PRESENT; MACROCYTES 1+; PLATELET ESTIMATE DECREASED (ADEQ)
[2016-07-23] MEDS: FLUTICASONE/SALMETER 250/50MCG DISKUS IH SCH ×2 (07:55→20:11)
[2016-07-23] MEDS ORDERED: LORazepam 1 MG TAB PO PRN (10:54)
[2016-07-23] MEDS ORDERED: K PHOS 10 MMOL in D5W 250 ML IV ONE (12:00)
[2016-07-23] MEDS: PANTOPRAZOLE SODIUM 40 MG TAB PO SCH (12:15)
[2016-07-23] MEDS: AZITHROMYCIN 250 MG TAB PO SCH (12:15)
[2016-07-23] MEDS: FOLIC ACID 1 MG TAB PO SCH (12:15)
[2016-07-23] MEDS: CITALOPRAM 20 MG TAB PO SCH (12:15)
[2016-07-23] MEDS: MULTIVITAMINS 1 EACH TAB PO SCH (12:15)
[2016-07-23] MEDS: THIAMINE HCL 100 MG TAB PO SCH (12:16)
[2016-07-23] MEDS: NICOTINE 14 MG/24 HR PATCH TD SCH (12:16)
[2016-07-23] MEDS: AMOXICILLIN/CLAVULANATE POT 875/125 MG TAB PO SCH ×2 (12:24→20:26)
[2016-07-23] MEDS: CREON 12 CAP PO SCH ×3 (12:24→18:31)
--- NOTE | 2016-07-23 17:02 | HOSPPROG ---
Hospitalist Progress Note Assessment/Plan: * Acute on chronic pancreatitis due to Etoh -extensive pancreatic calcifications on CT -low fat diet * Etoh withdrawal -IV thiamine -stop benzos - I don't think he's having any further withdrawal * Severe protein calorie malnutrition -suspect malabsorption due to chronic pancreatitis -start enzymes -outpatient GI follow up * Aspiration pneumonia -azithromycin + augmentin -hemoptysis - CT chest negative * Pancytopenia - suspect BM suppression due to Etoh -improving with Etoh cessation * Etoh hepatitis -abnormal LFT, AST/ALT ration c/w Etoh * Asthma -continue advair * Tobacco dependence -patch * ARF - suspect hypovolemia -improved Subjective: Hasn't called about alcohol rehab. Evasive regarding his plan. Mom very upset about him possibly being discharge home Objective: Vital Signs Temp Pulse Resp BP Pulse Ox 36.5 C 89 16 145/104 H 95 07/23/16 15:14 07/23/16 16:26 07/23/16 16:26 07/23/16 15:14 07/23/16 16:26 Laboratory Results 07/23/16 03:30 07/23/16 03:30 07/22/16 07/23/16 07/24/16 05:59 05:59 05:59 Intake Total 2320 1380 Output Total 400 550 Balance 1920 830 PT 13.9 SEC (12.0-15.0) 07/19/16 06:49 INR 1.08 (0.83-1.16) 07/19/16 06:49 - Physical Exam Constitutional: no apparent distress, appears nourished, not in pain Cardiovascular: regular rate and rhythym, no murmur, rub, or gallop Respiratory: no respiratory distress, no rales or rhonchi, clear to auscultation Gastrointestinal: normoactive bowel sounds, soft, non-tender abdomen, no palpable masses Skin: no rashes or abrasions, no fluctuance, no induration Neurologic: AAOx3, sensation intact bilaterally Psychiatric: interacting appropriately, not anxious, not encephalopathic, thought process linear ICD10 Worksheet Patient Problems: Problems Problem Status Diagnosed Abdominal pain Acute Alcohol dependence Acute Alcoholic ketoacidosis Acute Alcoholic pancreatitis Acute Fatty liver Acute Hyperbilirubinemia Acute Nausea and vomiting Acute Thrombocytopenia Acute Transaminitis Acute
[2016-07-23 18:58] LABS: POTASSIUM 4.2 mEq/L (3.5-5.2)
[2016-07-23] MEDS: traZODone 100 MG TAB PO PRN (20:26)
[2016-07-24] MEDS: IPRATROPIUM/ALBUTEROL 3 ML DEYVIAL IH SCH ×2 (05:03→11:18)
[2016-07-24 05:12] LABS: ADD DIFF? YES; ADD MORPH? NO; ADD SCAN? NO; ATYPICAL LYMPHOCYTE FLAG 70 (0-99); FRAGMENT RBC FLAG 0 (0-99); HEMATOCRIT 31.4 % (40.0-51.0); HEMOGLOBIN 11.3 g/dL (13.7-17.5); LEFT SHIFT FLG 50 (0-99); LIPEMIA HEMOLYSIS FLAG 90 (0-99); MEAN CELL HEMOGLOBIN 37.4 pg (27.9-34.1); MEAN PLATELET VOLUME 12.1 fL (8.7-11.7); PLATELET CLUMPS FLAG 10 (0-99); PLATELET COUNT 61 10^3/uL (150-400); RED BLOOD CELL COUNT 3.02 10^6/uL (4.40-6.38); RED CELL DISTRIBUTION WIDTH 11.7 % (11.5-15.2)
[2016-07-24 05:29] LABS: POTASSIUM 3.8 mEq/L (3.5-5.2)
[2016-07-24 05:57] LABS: PLATELET ESTIMATE DECREASED (ADEQ)
[2016-07-24 05:58] LABS: MACROCYTES 1+
[2016-07-24] MEDS: CREON 12 CAP PO SCH ×2 (08:02→11:01)
[2016-07-24] MEDS: PANTOPRAZOLE SODIUM 40 MG TAB PO SCH (08:02)
[2016-07-24] MEDS: NICOTINE 14 MG/24 HR PATCH TD SCH (08:02)
[2016-07-24] MEDS: FOLIC ACID 1 MG TAB PO SCH (08:02)
[2016-07-24] MEDS: AMOXICILLIN/CLAVULANATE POT 875/125 MG TAB PO SCH (08:02)
[2016-07-24] MEDS: THIAMINE HCL 100 MG TAB PO SCH (08:02)
[2016-07-24] MEDS: CALCIUM CARBONATE 500 MG CHEWABLE TAB PO PRN (08:02)
[2016-07-24] MEDS: MULTIVITAMINS 1 EACH TAB PO SCH (08:03)
[2016-07-24] MEDS: AZITHROMYCIN 250 MG TAB PO SCH (08:03)
[2016-07-24] MEDS: CITALOPRAM 20 MG TAB PO SCH (08:03)
[2016-07-24] MEDS: FLUTICASONE/SALMETER 250/50MCG DISKUS IH SCH (08:04)
[2016-07-24 09:04] VITALS: BP 140/92; TEMP 97.8
[2016-07-24] MEDS ORDERED: POTASSIUM CL 10 MEQ TAB PO ONE (10:39)
[2016-07-24 11:22] VITALS: PULSE 80; RESP 16; O2SAT 95
--- NOTE | 2016-07-24 22:31 | GDS ---
[f rep st] DISCHARGE SUMMARY DISCHARGE DIAGNOSES: 1. Tyatn-ms-dxxxzjy pancreatitis due to alcohol. 2. Alcohol withdrawal. 3. Severe protein calorie malnutrition, likely malabsorption due to chronic pancreatitis. 4. Aspiration pneumonia. 5. Pancytopenia due to bone marrow suppression from alcohol. 6. Alcohol hepatitis. 7. Asthma. 8. Tobacco dependence. 9. Acute renal failure. HISTORY: This patient is a 51-year-old male, drinking heavily until presentation. He was found to h ave imimw-xk-zrbgeme pancreatitis clearly from his alcohol. CT scan showed extensive pancreatic calc ifications, consistent with chronic pancreatitis. He was treated n.p.o. and then eventually advanced to a low-fat diet. Given the pancreatic calcifications and his chronic malnutrition, pancreatic enz ymes were initiated. He should follow up with Gastroenterology as an outpatient for further manageme nt. He went through alcohol withdrawal with benzodiazepines being weaned off before discharge. Case Management worked with him and his family at length in terms of trying to get him into an outpatient program for his alcohol dependency. He was also found to have an aspiration pneumonia. He has been coughing up some blood, and CTA of th e chest was negative for PE, but it did show pulmonary infiltrates, especially in the right upper lob e, most consistent with aspiration. He did not have any risk factors for tuberculosis. He was start ed on azithromycin and Augmentin and did improve. I suspect his very low platelets in the 20s likely led to the hemoptysis with just some minor bronchial irritation. With alcohol cessation while he wa s in the hospital, his pancytopenia was improving, his LFTs were improving, his renal failure resolve d. Unfortunately, he continued to show low motivation regarding engaging in alcohol cessation progrnilo ms when he left the hospital. He does appear to have extensive friends and family support, however, and they were fully engaged in trying to help him in this process. DISCHARGE MEDICATIONS: Please see computerized record for full detailed list. NEW MEDICATIONS: 1. Augmentin 875 mg p.o. twice daily for 7 days. 2. Azithromycin 500 mg p.o. daily for 5 days. 3. Protonix 40 mg p.o. daily. 4. Creon 12 one tab p.o. 3 times daily with meals. ADDITIONAL DISCHARGE INSTRUCTIONS: 1. Referrals given for [facility] and [facility] for alcohol treatment. 2. Outpatient followup with Gastroenterology for further management of chronic pancreatitis and need for pancreatic enzymes. DISCHARGE TIME: Greater than 30 minutes' time was spent arranging this discharge. The patient was s een and examined by me on the day of discharge. /[id number]/MODL
== END 2016-07-24 12:45 | disposition home or self-care (01) | DRG 438 ==
LOC: F2W 03:50 → OBSVTOIN 04:13
PROVIDERS: ADMIT Internal Medicine; ATTEND Internal Medicine
DX: K85.20 Alcohol induced acute pancreatitis without necrosis or infection (principal); K86.0 Alcohol-induced chronic pancreatitis; J69.0 Pneumonitis due to inhalation of food and vomit; E43 Unspecified severe protein-calorie malnutrition; F10.239 Alcohol dependence with withdrawal, unspecified; D61.818 Other pancytopenia; N17.9 Acute kidney failure, unspecified; J44.9 Chronic obstructive pulmonary disease, unspecified; K70.10 Alcoholic hepatitis without ascites; F17.200 Nicotine dependence, unspecified, uncomplicated
CPT/HCPCS: 80305; 82607-90; 92526-GN; 92610-GN; 96374; 97116-GP; 97163-GP; 97167-GO; 97530-GO; 97530-GP; J2405; J3010; J3411; Q9967

== ENCOUNTER 2017-06-10 13:08 | Inpatient (IN) | payer MEDICAID ==
[2017-06-10] MEDS ORDERED: NS 1,000 ML IV ONE ×2 (14:10→14:57)
[2017-06-10] MEDS ORDERED: ONDANSETRON 4 MG/2 ML VIAL IVP ONE (14:12)
[2017-06-10] MEDS ORDERED: ONDANSETRON 4 MG/2 ML VIAL ONE (14:13)
[2017-06-10] MEDS ORDERED: LORazepam 2 MG/ML INJ IVP ONE ×4 (14:26→19:43)
--- NOTE | 2017-06-10 14:26 | EDPHY ---
General - History Smoking Status: Light smoker Narrative: CHIEF COMPLAINT: Nausea, vomiting, abdominal pain, cough HISTORY OF PRESENT ILLNESS: Patient complains of several days history of nausea, vomiting, right upper quadrant abdominal pain, cough, malaise. Some chills but is not take his temperature. This was gradual onset. Constant duration. Also has worsening of his chronic back pain that radiates down the right leg. No trauma or injury. No chest pain. Abdominal pain radiates into the epigastrium. Admits to being a heavy alcohol user with at least 5 vodka drinks per night. No alcohol intake since last night, but this is normal for him. He has not yet been evaluated for this. No other associated complaints or modifying factors. REVIEW OF SYSTEMS: Ten systems reviewed and are negative unless otherwise noted in the HPI PCP: Dr. Anaya SPECIALISTS: Dr. Noe PAST MEDICAL HISTORY: Chronic back pain, asthma, alcohol abuse SOCIAL HISTORY: Daily smoker. Daily alcohol use. 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 Airway patent Neck: Normal inspection, supple, non-tender Respiratory: Scattered rhonchi. Mild dry crackles. No diminishment. No wheezing. No distress. Cardiovascular: Tachycardic rate. Regular rhythm. No murmur. Gastrointestinal: Abdomen is soft. No distention. No tympany. No rigidity. No guarding. There is tenderness in the epigastrium right upper quadrant. Back: Lumbar tenderness at baseline per patient. No crepitus. No step-off or deformity. Neurological: GCS 15. A&O, nonfocal, strength is symmetric in lower extremities. No footdrop. Skin: Warm and dry, no rash Extremities: Nontender, no pedal edema. Symmetric range of motion Psychiatric: Mood and affect normal DIFFERENTIAL DIAGNOSES: Including but not limited to pancreatitis, gastritis, cholecystitis, cholelithiasis, colitis, diverticulitis, influenza, esophagitis MDM: 2:30 p.m. Abdominal pain with nausea and some flu-like symptoms. Patient is tachycardic, but he is not tachypneic or febrile. Oxygenation is within normal limits. Does not meet SIRS criteria. I have ordered Ativan, IV fluid, laboratory studies, chest x-ray. I have also ordered influenza test. Case discussed with Dr. Driscoll 3:13 pm. Notified by Radiologist Dr. Nelson. New round nodule suspected in right upper hilum. Recommend PA and lateral chest. He informs me that this may be done in a routine fashion. 3:40 p.m. Laboratory studies reveal no leukocytosis. He does have a hypokalemia at 2.9. EKG obtained earlier was unremarkable. I have ordered IV and p.o. replacement. We will also recheck his lactic acid is soon as the IV fluid has infused. Patient has been evaluated by Dr. Driscoll 4:12 p.m. Patient re-evaluated. He is now appears to be confused. He was out of bed and off the monitor. He has been placed back on the monitor and has nearly completed his IV fluid. 4:20 p.m. Patient re-evaluated. He is now back in the bed on a monitor. His heart rate has increased despite IV fluid replacement. He is alert to person, place and time. He did not appear to be encephalopathic but he is very anxious, fidgeting and does exhibit withdrawal symptoms. He is in no acute distress but I do not feel he is stable for discharge home. Additionally, he does have hyponatremia, hypokalemia and chronically elevated LFTs. We will further evaluate these with ultrasound the gallbladder. 4:[address] Driscoll discussed the case with Dr. Carr. She will admit the patient to her service. He is admitted to the step-down unit. I have also ordered thiamine and folate p.o.. He is admitted in stable condition. SUPERVISION: Patient was evaluated and examined in conjunction with my secondary supervising physician as documented. We have both examined the patient. EKG interpretation: Dr. Driscoll Sinus tachycardia (Carlos Preston) I did evaluate the patient independently. His abdominal exam is benign. He does have elevated LFTs. Will obtain ultrasound. He is tachycardic but not tremulous. This is somewhat confusing picture but likely from alcohol withdrawal. We will continue to treat with Ativan and fluids (Willie Driscoll) - Diagnostics Imaging Results: Imaging Impressions Chest X-Ray 06/10/17 14:28 Impression: Possible developing nodule right upper lung. Recommend a routine PA and lateral chest which can then be compared to September 17, 2016. Results discussed with Carlos Preston at 3:13 PM. Abdomen Ultrasound 06/10/17 16:19 Impression: 1. Continued mild progressive enlargement of the chronic hepatomegaly, related to diffuse steatosis (as demonstrated on CT 07/19/2016). - Objective Vital Signs: Initial Vital Signs Temperature (C) 36.8 C 06/10/17 13:18 Heart Rate 148 H 06/10/17 13:18 Respiratory Rate 20 06/10/17 13:18 Blood Pressure 123/79 H 06/10/17 13:18 O2 Sat (%) 93 06/10/17 13:18 O2 Delivery Mode Nasal Cannula O2 (L/minute) 3 Allergies/Adverse Reactions: No Known Allergies Allergy (Verified 06/10/17 13:14) Home Medications: Medication Instructions Recorded Aspirin [Aspirin 81mg (*)] 81 mg PO DAILY 06/10/17 Clorazepate Dipotassium 7.5 mg PO BID 06/10/17 Cyclobenzaprine [Flexeril 10 MG 10 mg PO TID PRN 06/10/17 (*)] oxyCODONE HCL [Oxycodone HCl ER] 10 mg PO Q6HRS PRN 06/10/17 traZODone [traZODONE 50MG (*)] 50 - 100 mg PO HS 06/10/17 Laboratory Results: Laboratory Results 06/10/17 14:35 06/10/17 14:35 06/10/17 06/10/17 06/10/17 14:35 14:35 14:35 WBC RBC Hgb Hct MCV MCH MCHC RDW Plt Count MPV Neut % (Auto) Lymph % (Auto) [place] % (Auto) Eos % (Auto) Baso % (Auto) Nucleat RBC Rel Count Absolute Neuts (auto) Absolute Lymphs (auto) Absolute Monos (auto) Absolute Eos (auto) Absolute Basos (auto) Absolute Nucleated RBC Immature Gran % Immature Gran # VBG Lactic Acid 5.9 mmol/L H mmol/L (0.7-2.1) Sodium Potassium Chloride Carbon Dioxide Anion Gap BUN Creatinine Estimated GFR Glucose Calcium Total Bilirubin Conjugated Bilirubin Unconjugated Bilirubin AST ALT Alkaline Phosphatase Total Protein Albumin Lipase Nasal Influenza A PCR NEGATIVE FOR FLU A (NEGATIVE) Nasal Influenza B PCR NEGATIVE FOR FLU B (NEGATIVE) Ethyl Alcohol < 10 mg/dL mg/dL (0-10) 06/10/17 06/10/17 14:35 14:35 WBC 7.61 10^3/uL 10^3/uL (3.80-9.50) RBC 4.74 10^6/uL 10^6/uL (4.40-6.38) Hgb 15.6 g/dL g/dL (13.7-17.5) Hct 42.5 % % (40.0-51.0) MCV 89.7 fL fL (81.5-99.8) MCH 32.9 pg pg (27.9-34.1) MCHC 36.7 g/dL g/dL (32.4-36.7) RDW 13.5 % % (11.5-15.2) Plt Count 51 10^3/uL L 10^3/uL (150-400) MPV 13.3 fL H fL (8.7-11.7) Neut % (Auto) 79.0 % H % (39.3-74.2) Lymph % (Auto) 5.5 % L % (15.0-45.0) [place] % (Auto) 14.7 % H % (4.5-13.0) Eos % (Auto) 0.0 % L % (0.6-7.6) Baso % (Auto) 0.4 % % (0.3-1.7) Nucleat RBC Rel Count 0.0 % % (0.0-0.2) Absolute Neuts (auto) 6.01 10^3/uL 10^3/uL (1.70-6.50) Absolute Lymphs (auto) 0.42 10^3/uL L 10^3/uL (1.00-3.00) Absolute Monos (auto) 1.12 10^3/uL H 10^3/uL (0.30-0.80) Absolute Eos (auto) 0.00 10^3/uL L 10^3/uL (0.03-0.40) Absolute Basos (auto) 0.03 10^3/uL 10^3/uL (0.02-0.10) Absolute Nucleated RBC 0.00 10^3/uL 10^3/uL (0-0.01) Immature Gran % 0.4 % % (0.0-1.1) Immature Gran # 0.03 10^3/uL 10^3/uL (0.00-0.10) VBG Lactic Acid Sodium 126 mEq/L L mEq/L (134-144) Potassium 2.9 mEq/L L mEq/L (3.5-5.2) Chloride 70 mEq/L L mEq/L (97-110) Carbon Dioxide 28 mEq/l mEq/l (22-31) Anion Gap 27 mEq/L H mEq/L (8-16) BUN 32 mg/dL H mg/dL (7-23) Creatinine 1.0 mg/dL mg/dL (0.7-1.3) Estimated GFR > 60 Glucose 258 mg/dL H mg/dL (70-100) Calcium 9.7 mg/dL mg/dL (8.5-10.4) Total Bilirubin 3.1 mg/dL H mg/dL (0.1-1.4) Conjugated Bilirubin 1.2 mg/dL H mg/dL (0.0-0.5) Unconjugated Bilirubin 1.9 mg/dL H mg/dL (0.0-1.1) AST 177 IU/L H IU/L (17-59) ALT 85 IU/L H IU/L (21-72) Alkaline Phosphatase 143 IU/L H IU/L (38-126) Total Protein 7.4 g/dL g/dL (6.3-8.2) Albumin 4.9 g/dL g/dL (3.5-5.0) Lipase 37 IU/L IU/L (23-300) Nasal Influenza A PCR Nasal Influenza B PCR Ethyl Alcohol Medications Given: Discontinued Medications Folic Acid (Folic Acid) 1 mg PO EDNOW ONE Stop: 06/10/17 16:30 Last Admin: 06/10/17 16:57 Dose: 1 mg Sodium Chloride (Ns) 1,000 mls @ 0 mls/hr IV EDNOW ONE; Wide Open PRN Reason: Protocol Stop: 06/10/17 14:11 Last Admin: 06/10/17 14:34 Dose: 1,000 mls Sodium Chloride (Ns) 1,000 mls @ 0 mls/hr IV EDNOW ONE; Wide Open PRN Reason: Protocol Stop: 06/10/17 14:58 Last Admin: 06/10/17 15:20 Dose: 1,000 mls Potassium Chloride (Potassium Cl 10 Meq (Premix)) 100 mls @ 100 mls/hr IV Q1H REMA Stop: 06/10/17 17:44 Last Admin: 06/10/17 17:45 Dose: 100 mls Lorazepam (Ativan Injection) 2 mg IVP EDNOW ONE Stop: 06/10/17 14:27 Last Admin: 06/10/17 14:49 Dose: 1 mg Lorazepam (Ativan Injection) 2 mg IVP EDNOW ONE Stop: 06/10/17 15:31 Last Admin: 06/10/17 15:36 Dose: 2 mg Lorazepam (Ativan Injection) 2 mg IVP EDNOW ONE Stop: 06/10/17 16:26 Last Admin: 06/10/17 16:26 Dose: 2 mg Lorazepam (Ativan Injection) 2 mg IVP EDNOW ONE Stop: 06/10/17 19:44 Last Admin: 06/10/17 19:57 Dose: 2 mg Ondansetron HCl (Zofran) 4 mg IVP EDNOW ONE Stop: 06/10/17 14:13 Last Admin: 06/10/17 14:34 Dose: 4 mg Potassium Chloride (Klor Packets) 20 meq PO EDNOW ONE Stop: 06/10/17 15:40 Last Admin: 06/10/17 16:24 Dose: 20 meq Thiamine HCl (Vitamin B-1) 100 mg PO EDNOW ONE Stop: 06/10/17 16:30 Last Admin: 06/10/17 16:59 Dose: 100 mg Departure - Departure Disposition: [facility] Acute Clinical Impression: Hyponatremia, Hypokalemia Alcohol withdrawal Qualifiers: Complication of substance-induced condition: with unspecified complication Qualified Code(s): F10.239 - Alcohol dependence with withdrawal, unspecified Condition: Fair
--- NOTE | 2017-06-10 14:30 | CPEKG ---
Heart Rate: 124 RR Interval: 484 P-R Interval: 148 QRSD Interval: 84 QT Interval: 304 QTC Interval: 437 P [place]: 82 QRS [place]: 132 T Wave [place]: -41 EKG Severity - ABNORMAL ECG - EKG Impression: SINUS TACHYCARDIA EKG Impression: LEFT POSTERIOR FASCICULAR BLOCK EKG Impression: LOW VOLTAGE IN FRONTAL LEADS EKG Impression: NONSPECIFIC T ABNORMALITIES, INFERIOR LEADS Electronically Signed By: Willie Driscoll 10-Jun-2017 14:34:54
[2017-06-10 14:59] LABS: % IMMATURE GRANULYOCYTES 0.4 % (0.0-1.1); ABSOLUTE IMMATURE GRANULOCYTES 0.03 10^3/uL (0.00-0.10); ADD DIFF? NO; ADD MORPH? NO; ADD SCAN? NO; ATYPICAL LYMPHOCYTE FLAG 0 (0-99); FRAGMENT RBC FLAG 0 (0-99); HEMATOCRIT 42.5 % (40.0-51.0); HEMOGLOBIN 15.6 g/dL (13.7-17.5); LEFT SHIFT FLG 10 (0-99); LIPEMIA HEMOLYSIS FLAG 90 (0-99); MEAN CELL HEMOGLOBIN 32.9 pg (27.9-34.1); MEAN CELL HEMOGLOBIN CONCENTR. 36.7 g/dL (32.4-36.7); MEAN CELL VOLUME 89.7 fL (81.5-99.8); MEAN PLATELET VOLUME 13.3 fL (8.7-11.7); PLATELET CLUMPS FLAG 30 (0-99); PLATELET COUNT 51 10^3/uL (150-400); RED BLOOD CELL COUNT 4.74 10^6/uL (4.40-6.38); RED CELL DISTRIBUTION WIDTH 13.5 % (11.5-15.2)
[2017-06-10 15:03] LABS: ALANINE AMINOTRANSFERASE 85 IU/L (21-72); ALBUMIN 4.9 g/dL (3.5-5.0); ALKALINE PHOSPHATASE 143 IU/L (38-126); ANION GAP 27 mEq/L (8-16); ASPARTATE AMINOTRANSFERASE 177 IU/L (17-59); BILIRUBIN,TOTAL 3.1 mg/dL (0.1-1.4); CALCIUM 9.7 mg/dL (8.5-10.4); CARBON DIOXIDE 28 mEq/l (22-31); GLOMERULAR FILTRATION RATE > 60; GLUCOSE 258 mg/dL (70-100); POTASSIUM 2.9 mEq/L (3.5-5.2); SODIUM 126 mEq/L (134-144); TOTAL PROTEIN 7.4 g/dL (6.3-8.2)
[2017-06-10 15:36] LABS: BILIRUBIN-CONJUGATED 1.2 mg/dL (0.0-0.5); BILIRUBIN-UNCONJUGATED 1.9 mg/dL (0.0-1.1)
[2017-06-10] MEDS ORDERED: POTASSIUM CL 20 MEQ PKT PO ONE (15:39)
[2017-06-10 15:44] LABS: LACGHOST ORDER
[2017-06-10 15:54] LABS: CHLORIDE 70 mEq/L (97-110)
[2017-06-10] MEDS ORDERED: LORazepam 2 MG/ML INJ ONE (16:21)
[2017-06-10] MEDS: POTASSIUM Cl (KCl) 100 ML IV SCH ×2 (16:25→17:45)
[2017-06-10] MEDS ORDERED: THIAMINE HCL 100 MG TAB PO ONE (16:29)
[2017-06-10] MEDS ORDERED: FOLIC ACID 1 MG TAB PO ONE (16:29)
[2017-06-10 16:50] LABS: ETHANOL SERUM < 10 mg/dL (0-10)
[2017-06-10] MEDS ORDERED: PROTOCOL POTASSIUM 1 DOSE MISC PRN (19:46)
[2017-06-10] MEDS ORDERED: DEXMEDETOMIDINE HCL 400 MCG in NS 100 ML IV SCH (20:00)
[2017-06-10 20:12] LABS: POTASSIUM 3.4 mEq/L (3.5-5.2)
[2017-06-10] MEDS ORDERED: POTASSIUM CL 10 MEQ TAB PO ONE (20:38)
[2017-06-10] MEDS: DEXMEDETOMIDINE IN 0.9 % NACL 100 ML IV SCH (20:48)
[2017-06-10] MEDS ORDERED: CYCLOBENZAPRINE 10 MG TAB PO PRN (21:12)
[2017-06-10] MEDS ORDERED: chlordiazePOXIDE 25 MG CAP PO PRN (21:13)
[2017-06-10] MEDS ORDERED: HYDROmorphone HCL/NS/PF 0.4 MG/2 ML SYR IVP PRN (21:16)
[2017-06-10] MEDS ORDERED: ACETAMINOPHEN 500 MG TAB PO PRN (21:16)
[2017-06-10] MEDS ORDERED: PROMETHAZINE HCL 25 MG/ML INJ IVP PRN (21:16)
[2017-06-10] MEDS ORDERED: IPRATROPIUM/ALBUTEROL 3 ML DEYVIAL IH PRN (21:16)
[2017-06-10] MEDS ORDERED: ONDANSETRON 4 MG/2 ML VIAL IVP PRN (21:16)
[2017-06-10] MEDS: NS 1,000 ML IV SCH (21:46)
--- NOTE | 2017-06-10 22:11 | GHP ---
[f rep st] HISTORY AND PHYSICAL DATE OF ADMISSION: 06/10/2017 CHIEF COMPLAINT: Nausea, vomiting, leg pain. HISTORY: The patient is a 51-year-old male who came to the emergency room complaining of nausea, vom iting, right upper quadrant pain, and chronic back pain radiating to his right leg. After arrival to the emergency room, he went into florid alcohol withdrawal, requiring 7 mg of IV Ativan in the emerg ency room for alcohol withdrawal. He is now confused and sedated, and I cannot get a good history fr om him regarding his initial chief complaint. PAST MEDICAL HISTORY: 1. Chronic alcoholic pancreatitis. 2. Alcohol withdrawal. 3. Asthma. MEDICATIONS: Please see computer record for full detailed list. ALLERGIES: No known drug allergies. SOCIAL HISTORY: He smokes 1-2 cigarettes per day. He admits to 3-6 shots of vodka per day. He was recently living in [place] with some friends and recently came back down to the [place] and plans to stay with his mom, although he does not want to stay there long-term because he claims she i s a hoarder. REVIEW OF SYSTEMS: Complete review of systems obtained. Review of systems negative regarding consti tutional, HEENT, GI, pulmonary, cardiovascular, , hematology, skin, musculoskeletal, endocrine, psy ch, except for positives as note in the HPI. This is limited by the patient's metabolic state. FAMILY HISTORY: Reviewed and noncontributory to the presenting complaint. PHYSICAL EXAMINATION: GENERAL: Well-developed, well-nourished male in no distress. VITAL SIGNS: T emperature 36.8, pulse 148, blood pressure 131/98, satting 93% on room air examination. EYES: Amna l conjunctivae. Pupils equal, round, reactive to light. ENT: Normal ears and nose. Hearing intact . Normal lips and teeth. Oropharynx moist. NECK: Trachea midline. No thyromegaly. CHEST: Amna l respiratory effort. LUNGS: Clear to auscultation bilaterally. CARDIOVASCULAR: Regular rhythm. No murmur. No lower extremity edema. ABDOMEN: Soft, nontender. No hepatosplenomegaly. SKIN: War m, dry, intact. No rash. MUSCULOSKELETAL: No cyanosis or clubbing. Strength 5/5 upper and lower e xtremities. NEURO: Cranial nerves intact. Normal sensation to light touch. PSYCH: The patient is awake and alert, but confused post multiple doses of IV Ativan. Poor judgment and insight. Poor me kaz. LABORATORY DATA: White count 7.6, hematocrit 42.5, platelets 51. Sodium 126, potassium 2.9, chlorid e 70, bicarb 28, BUN 32, creatinine 1.0, glucose 258. Total bilirubin 3.1, conjugated bilirubin 1.2. AST 177, ALT is 85, lactate initially 5.9, now down to 3.8. EKG viewed by me. My personal interpretation is sinus tachycardia. Chest x-ray shows right upper lobe nodule. Abdominal ultrasound shows hepatomegaly and steatosis. DISCUSSION: This case was discussed with Dr. Willie Driscoll in the emergency room. The patient is ve ry tachycardic, requiring high dose of Ativan and is being admitted to step-down. ASSESSMENT/PLAN: 1. Alcohol withdrawal. He has required high doses of Ativan and is now being admitted to step-down with the likelihood of a Precedex drip. Will prescribe IV thiamine. 2. Lactate elevation. I do not think he is septic. I think he is dehydrated and has poor clearance of lactate due to his liver dysfunction. Will continue to hydrate with IV fluids and follow until n ormalization. 3. Nausea, vomiting, abdominal pain, and weight loss. Need to get a better history regarding this w hen the patient is able to participate. I suspect he may be malabsorbing due to his chronic pancreat itis. Will start him on Creon. 4. Chronic alcoholic pancreatitis. He does have extensive calcifications throughout his pancreas, b y previous CT. 5. Hyperglycemia. Will check a hemoglobin A1c. 6. Alcoholic hepatitis. Will follow LFTs. 7. Hyponatremia, I suspect due to hypovolemia. Will hydrate with IV normal saline and continue to f ollow. 8. Right upper lung nodule. He needs a followup chest x-ray when he is more stable. CORE STATUS: Full. ADMISSION STATUS: 1. Will admit to inpatient, as he is medically complex. Anticipate greater than 2 midnights. 2. DVT prophylaxis. Will hold off on pharmacologic prophylaxis at this time because his platelets a re only 51. /[id number]/MODL
[2017-06-10 22:58] LABS: ANION GAP 11 mEq/L (8-16); CALCIUM 7.2 mg/dL (8.5-10.4); CARBON DIOXIDE 31 mEq/l (22-31); CHLORIDE 90 mEq/L (97-110); CREATININE 0.6 mg/dL (0.7-1.3); GLOMERULAR FILTRATION RATE > 60; GLUCOSE 115 mg/dL (70-100); SODIUM 132 mEq/L (134-144)
[2017-06-10 23:04] LABS: POTASSIUM 2.7 mEq/L (3.5-5.2)
[2017-06-11 02:40] LABS: ALANINE AMINOTRANSFERASE 58 IU/L (21-72); ALBUMIN 3.8 g/dL (3.5-5.0); ALKALINE PHOSPHATASE 101 IU/L (38-126); ANION GAP 17 mEq/L (8-16); ASPARTATE AMINOTRANSFERASE 123 IU/L (17-59); BILIRUBIN,TOTAL 1.8 mg/dL (0.1-1.4); BILIRUBIN-CONJUGATED 0.7 mg/dL (0.0-0.5); BILIRUBIN-UNCONJUGATED 1.1 mg/dL (0.0-1.1); CALCIUM 8.6 mg/dL (8.5-10.4); CARBON DIOXIDE 32 mEq/l (22-31); CHLORIDE 88 mEq/L (97-110); CREATININE 0.7 mg/dL (0.7-1.3); GLOMERULAR FILTRATION RATE > 60; GLUCOSE 128 mg/dL (70-100); MAGNESIUM 1.9 mg/dL (1.6-2.3); POTASSIUM 3.4 mEq/L (3.5-5.2); SODIUM 137 mEq/L (134-144)
[2017-06-11] MEDS: POTASSIUM Cl (KCl) 10 MEQ in NS 100 ML IV SCH ×3 (03:38→05:15)
[2017-06-11] MEDS: DEXMEDETOMIDINE IN 0.9 % NACL 100 ML IV SCH (03:41)
[2017-06-11 06:43] LABS: % IMMATURE GRANULYOCYTES 0.7 % (0.0-1.1); ABSOLUTE IMMATURE GRANULOCYTES 0.02 10^3/uL (0.00-0.10); ADD DIFF? NO; ADD MORPH? NO; ADD SCAN? YES; ATYPICAL LYMPHOCYTE FLAG 0 (0-99); FRAGMENT RBC FLAG 0 (0-99); HEMATOCRIT 36.1 % (40.0-51.0); HEMOGLOBIN 12.6 g/dL (13.7-17.5); LIPEMIA HEMOLYSIS FLAG 90 (0-99); MEAN CELL HEMOGLOBIN 33.2 pg (27.9-34.1); MEAN CELL HEMOGLOBIN CONCENTR. 34.9 g/dL (32.4-36.7); MEAN PLATELET VOLUME 13.1 fL (8.7-11.7); PLATELET CLUMPS FLAG 50 (0-99); RED CELL DISTRIBUTION WIDTH 13.6 % (11.5-15.2)
[2017-06-11 06:45] LABS: LEFT SHIFT FLG 170 (0-99)
[2017-06-11 06:47] LABS: PLATELET COUNT 20 10^3/uL (150-400)
[2017-06-11 07:16] LABS: SCAN POSITIVE
[2017-06-11 07:25] LABS: PLATELET ESTIMATE DECREASED (ADEQ)
[2017-06-11 07:39] LABS: ALANINE AMINOTRANSFERASE 62 IU/L (21-72); ALBUMIN 3.4 g/dL (3.5-5.0); ALKALINE PHOSPHATASE 89 IU/L (38-126); ANION GAP 14 mEq/L (8-16); ASPARTATE AMINOTRANSFERASE 106 IU/L (17-59); BILIRUBIN,TOTAL 1.5 mg/dL (0.1-1.4); CALCIUM 8.7 mg/dL (8.5-10.4); CARBON DIOXIDE 29 mEq/l (22-31); CHLORIDE 92 mEq/L (97-110); CREATININE 0.7 mg/dL (0.7-1.3); GLOMERULAR FILTRATION RATE > 60; GLUCOSE 139 mg/dL (70-100); POTASSIUM 3.8 mEq/L (3.5-5.2); SODIUM 135 mEq/L (134-144); TOTAL PROTEIN 5.5 g/dL (6.3-8.2)
[2017-06-11] MEDS: NS 1,000 ML IV SCH (08:40)
[2017-06-11] MEDS ORDERED: ASPIRIN 81 MG CHEWABLE TAB PO SCH (09:00)
[2017-06-11] MEDS ORDERED: CLORAZEPATE 7.5 MG TAB PO SCH (09:00)
[2017-06-11] MEDS: LIPASE 12,000/AMYLASE/PROTEASE (CREON) 1 CAP PO SCH ×3 (09:04→21:22)
[2017-06-11 09:23] LABS: HEMOGLOBIN A1C 5.1 % (4.0-6.0)
[2017-06-11] MEDS: LORazepam 2 MG/ML INJ IVP PRN ×2 (09:28→14:00)
[2017-06-11] MEDS: THIAMINE HCL 500 MG in NS 100 ML IV SCH (09:28)
--- NOTE | 2017-06-11 11:12 | HOSPPROG ---
Hospitalist Progress Note Assessment/Plan: New patient encounter 51 yo male with acute ETOH WD #Acute ETOH WD -Off Precedex -Cont CIWA, Ativan PRN, Librium PRN. -Ok to transfer to med surg #Advance Liver disease #Thrombocytopenia -Platelets 20 #Tobacco abuse disorder -start Nicotine patch #N/V, resolving #chronic pancreatitis -Creon started on admission #RUL node, will need f/u CXR #elevated Lactate, resolved Plan: -Stop IVF -Stop Precedex -cont CIWA per abov -start nicotine patch -check INR -Cont IV thiamine Dispo: cont inpatient Subjective: off precedex. Still with some tremor. No further N/V. No abd pain. Platelets are down. Objective: Vital Signs Temp Pulse Resp BP Pulse Ox 36.8 C 62 27 H 124/81 H 94 06/11/17 08:36 06/11/17 08:36 06/11/17 08:36 06/11/17 08:36 06/11/17 08:36 Laboratory Results 06/11/17 06:20 06/11/17 06:20 06/10/17 06/11/17 06/12/17 05:59 05:59 05:59 Intake Total 2500 Output Total 600 225 Balance 1900 -225 - Physical Exam Constitutional: no apparent distress Eyes: PERRL Ears, Nose, Mouth, Throat: moist mucous membranes, hearing normal Cardiovascular: regular rate and rhythym, no murmur, rub, or gallop, No JVD, No edema Respiratory: no respiratory distress, no rales or rhonchi Gastrointestinal: normoactive bowel sounds, soft, non-tender abdomen Skin: warm Neurologic: AAOx3 Psychiatric: interacting appropriately, not anxious, not encephalopathic Lymph, Heme, Immunologic: no cervical LAD ICD10 Worksheet Patient Problems: Problems Problem Status Onset Alcohol withdrawal Acute Hypokalemia Acute Hyponatremia Acute Abdominal pain Acute Alcohol dependence Acute Alcoholic ketoacidosis Acute Alcoholic pancreatitis Acute Fatty liver Acute Hyperbilirubinemia Acute Nausea and vomiting Acute Thrombocytopenia Acute Transaminitis Acute
[2017-06-11] MEDS: POTASSIUM Cl (KCl) 100 ML IV SCH ×2 (11:16→12:15)
[2017-06-11] MEDS: NICOTINE 14 MG/24 HR PATCH TD SCH (11:20)
--- NOTE | 2017-06-11 11:20 | PDMN ---
Medical Necessity Medical necessity: est los>2mn for etoh withdrawal requiring high doses of Ativan, R lung nodule, dehydration, N/V, abd pain, wt loss, hyperglycemia, and hyponatremia; admit to ICU/SDU, likely need for Precedex gtt; comorbid chronic etoh pancreatitis, asthma; per order and H&P 06/10/17
[2017-06-11 14:14] LABS: INR 1.07 (0.83-1.16); PROTIME(PATIENT) 14.1 SEC (12.0-15.0)
[2017-06-11] MEDS: FAMOTIDINE 20 MG TAB PO SCH (15:26)
--- NOTE | 2017-06-11 16:06 | ASMTCAGE ---
CAGE Do you feel you ought to Answers: Yes cut down on your drinking or drug use? Do people annoy you by Answers: Yes criticizing your drinking or drug use? Do you feel guilty about Answers: No your drinking or drug use? Do you drink or use drugs Answers: Yes first thing in the morning ([employer])? Date Signed: 06/11/2017 04:06 PM Electronically Signed By:Elizabeth Mancini RN
--- NOTE | 2017-06-11 16:11 | ASMTCMCOM ---
CM Note CM Note Notes: 06/11/2017 Case Management Note Met w/pt. Completed CAGE assessment. Pt reports desire to cut back on drinking to just 2 or 3 glasses of wine per day. Denies desire to cut back on pain medications. 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 Pt feels he is drinking to much every day. Pt drinks vodka daily and smokes approx half a pack of cigarettes a day. Pt reports that he has lived recently in [place] with a friend, but recently spent about a month in [place]. He has lived with his sister in the past for about 1.5 years. His Mom is nearby but he feels her house is too cluttered for him to live with her. Pt is not in a relationship at this time and he has no children. He does not have friends in the [place] area to provide housing. Case Management d/c poc: To be determined. Case Management to follow. Date Signed: 06/11/2017 04:11 PM Electronically Signed By:Elizabeth Mancini RN
[2017-06-11 17:53] LABS: POTASSIUM 3.4 mEq/L (3.5-5.2)
[2017-06-11] MEDS ORDERED: POTASSIUM CL 10 MEQ TAB PO ONE (20:57)
[2017-06-11] MEDS: oxyCODONE IR 5 MG TAB PO PRN (21:31)
[2017-06-11] MEDS: traZODone 50 MG TAB PO SCH (21:33)
[2017-06-12] MEDS: oxyCODONE IR 5 MG TAB PO PRN ×3 (05:13→22:19)
[2017-06-12 05:39] LABS: INR 1.01 (0.83-1.16); PROTIME(PATIENT) 13.5 SEC (12.0-15.0)
[2017-06-12 05:47] LABS: ALANINE AMINOTRANSFERASE 50 IU/L (21-72); ALBUMIN 3.5 g/dL (3.5-5.0); ALKALINE PHOSPHATASE 87 IU/L (38-126); ANION GAP 12 mEq/L (8-16); ASPARTATE AMINOTRANSFERASE 67 IU/L (17-59); BILIRUBIN,TOTAL 1.4 mg/dL (0.1-1.4); CALCIUM 9.2 mg/dL (8.5-10.4); CARBON DIOXIDE 26 mEq/l (22-31); CHLORIDE 98 mEq/L (97-110); CREATININE 0.6 mg/dL (0.7-1.3); GLOMERULAR FILTRATION RATE > 60; GLUCOSE 110 mg/dL (70-100); MAGNESIUM 2.1 mg/dL (1.6-2.3); POTASSIUM 3.5 mEq/L (3.5-5.2); SODIUM 136 mEq/L (134-144); TOTAL PROTEIN 5.8 g/dL (6.3-8.2)
[2017-06-12] MEDS ORDERED: PROTOCOL MAGNESIUM 1 DOSE IV PRN (05:58)
[2017-06-12] MEDS ORDERED: PROTOCOL K PHOSPHATE 1 DOSE IV PRN (05:58)
[2017-06-12 08:14] LABS: HEMATOCRIT 36.7 % (40.0-51.0); LIPEMIA HEMOLYSIS FLAG 90 (0-99); MEAN CELL HEMOGLOBIN 33.6 pg (27.9-34.1); MEAN CELL HEMOGLOBIN CONCENTR. 35.4 g/dL (32.4-36.7); MEAN CELL VOLUME 94.8 fL (81.5-99.8); PLATELET CLUMPS FLAG 80 (0-99); RED BLOOD CELL COUNT 3.87 10^6/uL (4.40-6.38); RED CELL DISTRIBUTION WIDTH 13.3 % (11.5-15.2)
[2017-06-12 08:18] LABS: PLATELET COUNT 42 10^3/uL (150-400)
[2017-06-12 08:28] LABS: MAGNESIUM 2.1 mg/dL (1.6-2.3)
[2017-06-12 08:44] LABS: PLATELET ESTIMATE DECREASED (ADEQ)
[2017-06-12] MEDS: NICOTINE 14 MG/24 HR PATCH TD SCH (10:08)
[2017-06-12] MEDS: FAMOTIDINE 20 MG TAB PO SCH (10:08)
[2017-06-12] MEDS: THIAMINE HCL 500 MG in NS 100 ML IV SCH (10:10)
[2017-06-12] MEDS: LIPASE 12,000/AMYLASE/PROTEASE (CREON) 1 CAP PO SCH ×2 (10:20→10:50)
--- NOTE | 2017-06-12 10:53 | HOSPPROG ---
Hospitalist Progress Note Assessment/Plan: 51 yo male with acute ETOH WD -Improving, but still needing benzo's -?aspiration, has needed O2 overnight -Failed swallow eval, now on [place] thick liquids -Afebrile, NO Leukocytosis #Acute ETOH WD -Off Precedex -Cont CIWA, Ativan PRN, Librium PRN. #Advance Liver disease, INR is normal #Thrombocytopenia -Platelets increasing #Tobacco abuse disorder - Nicotine patch #N/V, resolving #chronic pancreatitis -Creon started on admission #RUL node, will need f/u CXR #elevated Lactate, resolved Plan: -Obtain CXR, will review today -No abx for now -Cont CIWA -Cont IV thiamine -Aspiration precautions Dispo: cont inpatient. Expect discharge soon D/W nurse in depth Subjective: Some agitation this morning. Mild abd pain. Required O2 last night. No CP or SOB. No N/V Objective: Vital Signs Temp Pulse Resp BP Pulse Ox 36.4 C 122 H 16 121/94 H 93 06/12/17 07:34 06/12/17 07:34 06/12/17 07:34 06/12/17 07:34 06/12/17 07:34 Laboratory Results 06/12/17 08:06 06/12/17 04:18 06/11/17 06/12/17 06/13/17 05:59 05:59 05:59 Intake Total 2500 500 Output Total 600 225 Balance 1900 275 PT 13.5 SEC (12.0-15.0) 06/12/17 04:18 INR 1.01 (0.83-1.16) 06/12/17 04:18 - Physical Exam Constitutional: no apparent distress, not in pain Eyes: PERRL, EOMI Ears, Nose, Mouth, Throat: moist mucous membranes, hearing normal Cardiovascular: regular rate and rhythym, no murmur, rub, or gallop, No JVD, No edema Respiratory: no respiratory distress, no rales or rhonchi, clear to auscultation Gastrointestinal: normoactive bowel sounds, soft, non-tender abdomen Skin: warm Musculoskeletal: full muscle strength Neurologic: AAOx3, other (slight bilateral hand tremor) Psychiatric: interacting appropriately, not anxious, not encephalopathic Lymph, Heme, Immunologic: No petechiae ICD10 Worksheet Patient Problems: Problems Problem Status Onset Alcohol withdrawal Acute Hypokalemia Acute Hyponatremia Acute Abdominal pain Acute Alcohol dependence Acute Alcoholic ketoacidosis Acute Alcoholic pancreatitis Acute Fatty liver Acute Hyperbilirubinemia Acute Nausea and vomiting Acute Thrombocytopenia Acute Transaminitis Acute
[2017-06-12] MEDS: LORazepam 2 MG/ML INJ IVP PRN ×3 (11:36→23:30)
[2017-06-12] MEDS ORDERED: K PHOS 15 MMOL in D5W 250 ML IV ONE (16:00)
[2017-06-12 18:35] LABS: POTASSIUM 3.6 mEq/L (3.5-5.2)
[2017-06-12] MEDS ORDERED: POTASSIUM CL 10 MEQ TAB PO ONE (20:03)
[2017-06-12] MEDS: traZODone 50 MG TAB PO SCH (22:20)
[2017-06-13 04:35] LABS: % IMMATURE GRANULYOCYTES 0.9 % (0.0-1.1); ABSOLUTE IMMATURE GRANULOCYTES 0.05 10^3/uL (0.00-0.10); ADD DIFF? NO; ADD MORPH? NO; ADD SCAN? NO; ATYPICAL LYMPHOCYTE FLAG 0 (0-99); FRAGMENT RBC FLAG 0 (0-99); HEMATOCRIT 40.1 % (40.0-51.0); HEMOGLOBIN 14.2 g/dL (13.7-17.5); LEFT SHIFT FLG 0 (0-99); LIPEMIA HEMOLYSIS FLAG 90 (0-99); MEAN CELL HEMOGLOBIN 33.6 pg (27.9-34.1); MEAN CELL HEMOGLOBIN CONCENTR. 35.4 g/dL (32.4-36.7); MEAN CELL VOLUME 94.8 fL (81.5-99.8); MEAN PLATELET VOLUME 12.2 fL (8.7-11.7); PLATELET CLUMPS FLAG 0 (0-99); RED BLOOD CELL COUNT 4.23 10^6/uL (4.40-6.38); RED CELL DISTRIBUTION WIDTH 13.3 % (11.5-15.2)
[2017-06-13 04:36] LABS: PLATELET COUNT 37 10^3/uL (150-400)
[2017-06-13 04:54] LABS: ALANINE AMINOTRANSFERASE 48 IU/L (21-72); ALBUMIN 3.8 g/dL (3.5-5.0); ALKALINE PHOSPHATASE 92 IU/L (38-126); ANION GAP 15 mEq/L (8-16); ASPARTATE AMINOTRANSFERASE 53 IU/L (17-59); BILIRUBIN,TOTAL 0.9 mg/dL (0.1-1.4); CALCIUM 9.9 mg/dL (8.5-10.4); CARBON DIOXIDE 25 mEq/l (22-31); CHLORIDE 100 mEq/L (97-110); CREATININE 0.6 mg/dL (0.7-1.3); GLOMERULAR FILTRATION RATE > 60; GLUCOSE 117 mg/dL (70-100); MAGNESIUM 2.2 mg/dL (1.6-2.3); POTASSIUM 3.5 mEq/L (3.5-5.2); SODIUM 140 mEq/L (134-144); TOTAL PROTEIN 6.3 g/dL (6.3-8.2)
[2017-06-13 05:03] LABS: PLATELET ESTIMATE DECREASED (ADEQ)
[2017-06-13] MEDS ORDERED: POTASSIUM CL 10 MEQ TAB PO ONE ×2 (06:53→21:06)
[2017-06-13] MEDS: THIAMINE HCL 500 MG in NS 100 ML IV SCH (08:33)
[2017-06-13] MEDS: FAMOTIDINE 20 MG TAB PO SCH ×2 (08:34→21:27)
[2017-06-13] MEDS: LIPASE 12,000/AMYLASE/PROTEASE (CREON) 1 CAP PO SCH ×3 (08:34→17:38)
[2017-06-13] MEDS: NICOTINE 14 MG/24 HR PATCH TD SCH (08:34)
[2017-06-13] MEDS: oxyCODONE IR 5 MG TAB PO PRN ×3 (08:34→21:28)
[2017-06-13] MEDS ORDERED: ONDANSETRON DISINTEGRATING 4 MG TAB PO PRN (10:27)
--- NOTE | 2017-06-13 10:32 | HOSPPROG ---
Hospitalist Progress Note Assessment/Plan: 51 yo male with acute ETOH WD -WD improving -?aspiration, has needed O2 overnight -Failed swallow eval, now on [place] thick liquids -Afebrile, NO Leukocytosis #Acute ETOH WD -Off Precedex -Cont CIWA, Ativan PRN, Librium PRN. #Advance Liver disease, INR is normal #Thrombocytopenia -Platelets increasing #Tobacco abuse disorder - Nicotine patch #N/V, ongoing #GERD #chronic pancreatitis -Creon started on admission #RUL node, will need f/u CXR #elevated Lactate, resolved #?Aspiration Pneumonia, Hypoxemia, Cough Plan: -His cough has worsened. He is afebrile. Still needing 2 L O2 intermittently. No leukocytosis. Says he feels weak. As he also previously failed the swallow study I will empirically start him on Augmentin for aspiration pneumonia. His right lung is coarse. He does not have an obvious infiltrate on CXR which was personally reviewed -WD: he is much better. He is using Ativan minimally. Dispo: consider discharge soon. Subjective: Feels weak. + Cough. +Hypoxemia. Minimal WD symptoms. NO CP, no SOB. Objective: Vital Signs Temp Pulse Resp BP Pulse Ox 36.9 C 97 15 114/96 H 91 L 06/13/17 07:08 06/13/17 07:08 06/13/17 07:08 06/13/17 07:08 06/13/17 07:08 Laboratory Results 06/13/17 04:10 06/13/17 04:10 06/12/17 06/13/17 06/14/17 05:59 05:59 05:59 Intake Total 500 750 Output Total 225 500 Balance 275 250 PT 13.5 SEC (12.0-15.0) 06/12/17 04:18 INR 1.01 (0.83-1.16) 06/12/17 04:18 - Physical Exam Constitutional: no apparent distress, appears nourished Eyes: PERRL Ears, Nose, Mouth, Throat: moist mucous membranes, hearing normal Cardiovascular: regular rate and rhythym Respiratory: no respiratory distress, other (coars right lung) Gastrointestinal: normoactive bowel sounds, soft, non-tender abdomen Genitourinary: no bladder fullness Skin: warm Neurologic: AAOx3 Psychiatric: interacting appropriately, not encephalopathic, anxious Lymph, Heme, Immunologic: No petechiae ICD10 Worksheet Patient Problems: Problems Problem Status Onset Alcohol withdrawal Acute Hypokalemia Acute Hyponatremia Acute Abdominal pain Acute Alcohol dependence Acute Alcoholic ketoacidosis Acute Alcoholic pancreatitis Acute Fatty liver Acute Hyperbilirubinemia Acute Nausea and vomiting Acute Thrombocytopenia Acute Transaminitis Acute
[2017-06-13] MEDS: AMOXICILLIN/CLAVULANATE POT 875/125 MG TAB PO SCH ×2 (11:18→21:25)
[2017-06-13] MEDS ORDERED: LORazepam 0.5 MG TAB PO PRN (14:41)
--- NOTE | 2017-06-13 18:14 | ASMTCMCOM ---
CM Note CM Note Notes: Reviewed chart, spoke w/ TIFFANIE Sinha regarding discharge plan, pt's progress. Per TIFFANIE Sinha the pt reports that there is nowhere for him to go when he is discharged. Met w/ pt to discuss discharge options. Pt states his mother lives in [place], but is a "Hoarder," has cats and frequently gets sick; he would rather not stay with her. 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 The pt says he came to [place] to get help for his chronic right hip and back pain. He has been seeing a specialist for injections and is supposed to have surgery in the next few months. 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 Pt does not have any friends in [place] or any friends he can stay with at this time. Pt requesting a short stay in SNF rehab - pt informed he likely would not qualify, as he is able to ambulate without assistance or use of assisted devices and is able to manage all ADLs on his own. Discussed option of a substance abuse program - pt not really interested in quitting drinking at this time, stating "I have been a drinker my whole life." Multiple options presented - [place] Custodial bed; medical respite (although pt does not qualify due to ETOH abuse and unwillingness to quit); transitional housing programs in [place] and [place]; staying with family/friends; short-term hotel stay; substance abuse rehab. Pt states he does not want to take a Custodial bed away from someone truly in need; he does not want to stay w/ friends; he does not wish to go to a hotel without his girlfriend and he is not interested in substance abuse rehab or transitional housing. Pt agreed to try a night or two with his mother. CM will cont to follow for any further potential needs. Current discharge plan: Mother's house independently Date Signed: 06/13/2017 06:14 PM Electronically Signed By:Inocencia Adhikari RN
[2017-06-13 20:45] LABS: POTASSIUM 3.6 mEq/L (3.5-5.2)
[2017-06-13] MEDS: traZODone 50 MG TAB PO SCH (21:27)
[2017-06-14 03:31] VITALS: TEMP 98.3
[2017-06-14 07:50] VITALS: BP 112/82; PULSE 81; RESP 18
[2017-06-14 08:01] LABS: ADD DIFF? YES; ADD MORPH? NO; ADD SCAN? NO; ATYPICAL LYMPHOCYTE FLAG 10 (0-99); FRAGMENT RBC FLAG 20 (0-99); HEMATOCRIT 37.1 % (40.0-51.0); HEMOGLOBIN 13.1 g/dL (13.7-17.5); LEFT SHIFT FLG 10 (0-99); LIPEMIA HEMOLYSIS FLAG 90 (0-99); MEAN CELL HEMOGLOBIN 33.1 pg (27.9-34.1); MEAN CELL HEMOGLOBIN CONCENTR. 35.3 g/dL (32.4-36.7); MEAN CELL VOLUME 93.7 fL (81.5-99.8); PLATELET CLUMPS FLAG 40 (0-99); PLATELET COUNT 97 10^3/uL (150-400); RED BLOOD CELL COUNT 3.96 10^6/uL (4.40-6.38); RED CELL DISTRIBUTION WIDTH 13.3 % (11.5-15.2)
[2017-06-14] MEDS: AMOXICILLIN/CLAVULANATE POT 875/125 MG TAB PO SCH (08:05)
[2017-06-14] MEDS: LIPASE 12,000/AMYLASE/PROTEASE (CREON) 1 CAP PO SCH ×2 (08:05→14:17)
[2017-06-14] MEDS: NICOTINE 14 MG/24 HR PATCH TD SCH (08:05)
[2017-06-14] MEDS: FAMOTIDINE 20 MG TAB PO SCH (08:05)
[2017-06-14 08:46] LABS: PLATELET ESTIMATE DECREASED (ADEQ)
[2017-06-14 08:50] LABS: POTASSIUM 4.1 mEq/L (3.5-5.2)
[2017-06-14] MEDS ORDERED: THIAMINE HCL 100 MG TAB PO SCH (09:00)
--- NOTE | 2017-06-14 09:42 | PDHOMEO2F ---
Home Oxygen Face to Face Home Orders: I certify that a physician or a nurse practitioner or physician's assistant nurse manager has had a [id number] encounter with this patient on the date of this order due to the diagnosis listed, which relates to the primary reason the patient requires home oxygen. Alternative treatments have been tried, or considered, and deemed ineffective. It is anticipated that supplemental oxygen will result in improvement with treatment. Home oxygen qualifying diagnosis: Aspiration, ?COPD SpO2 on room air (%): 76 Frequency of home oxygen needed: continuous Home oxygen liters per minute: 2 Home oxygen delivery device: nasal cannula Concentrator: Yes E-tanks for mobility and back up: Yes If ordering portable O2, is the patient mobile in the home?: Yes I certify that, based on these findings, the home oxygen is medically necessary for this patient for the following length of time. Length of time home oxygen needed: 1 month (Follow up with PCP in 1-2 weeks to reassess home O2 needs)
--- NOTE | 2017-06-14 09:51 | PDIAF ---
- Diagnosis Diagnosis: alcohol withdrawal, aspiration, hypoxemia Code Status: Full Code - Medication Management Discharge Medications: Medications to Continue on Transfer Aspirin [Aspirin 81mg (*)] 81 mg PO DAILY 06/10/17 [Last Taken Unknown] Clorazepate Dipotassium 7.5 mg PO BID 06/10/17 [Last Taken Unknown] Cyclobenzaprine [Flexeril 10 MG (*)] 10 mg PO TID PRN 06/10/17 [Last Taken Unknown] oxyCODONE HCL [Oxycodone HCl] 10 mg PO Q6H PRN 06/10/17 [Last Taken Unknown] traZODone [traZODONE 50MG (*)] 50 - 100 mg PO HS 06/10/17 [Last Taken Unknown] Albuterol Sulfate [PROVENTIL HFA] 6.7 gm IH Q4H PRN #1 hfa.aer.ad 06/14/17 [ Last Taken Unknown] Amoxicillin/Clavulanate Pot [Augmentin 875 MG TAB (*)] 875 mg PO BID #10 tab 05/21 [Last Taken Unknown] Famotidine [Pepcid 20 MG (*)] 20 mg PO BID #60 tab 06/14/17 [Last Taken Unknown] Lipase 12,000/Amylase/Protease [Creon 12 (*)] 1 cap PO TIDMEAL #90 cap 06/14/17 [Last Taken Unknown] predniSONE 40 mg PO DAILY #10 tab 06/14/17 [Last Taken Unknown] Discharge Medications: Refer to the Discharge Home Medication list for PRN reason. PICC Care - Routine: N/A - Orders Services needed: Home Care, Physical Therapy, Speech Language Pathologist Home Care Face to Face: I certify that this patient was under my care and that I had the required [id number] encounter meeting the encounter requirements on the discharge day. My findings support the fact that the patient is homebound as defined in Home Care Face to Face Continued: CMS Chapter 7 Medicare Benefits Manual 30.1.1 , The condition of the patient is such that there exists a normal inability to leave home and consequently, leaving home would require a considerable and taxing effort. Isolation Type: Contact Isolation Oxygen: 2 LPM Diet Recommendation: no restrictions on diet Diet Texture: Regular Texture Diet, [place] Thick Liquids, Meds Crushed in Puree - Follow Up Care Current Providers and Referrals: George Anaya MD [Primary Care Provider] - As per Instructions
[2017-06-14 10:38] VITALS: O2SAT 91
--- NOTE | 2017-06-15 03:34 | GDS ---
[f rep st] DISCHARGE SUMMARY DISCHARGE DIAGNOSES: 1. Alcohol withdrawal, resolved. 2. Chronic pancreatitis. 3. Possible aspiration pneumonia. 4. Alcohol induced hepatitis. 5. Thrombocytopenia secondary to alcohol, improved. CONSULTANTS: None. HISTORY: For details please see the history and physical dated June 10, 2017. In brief, Mr. Prem mckeon is a 51-year-old male with a history of alcohol dependence and chronic alcoholic pancreatitis who presents to the emergency department with nausea, vomiting, and right upper quadrant pain. He wa s admitted to the hospital with acute alcohol withdrawal, acute alcoholic hepatitis, and acute on chr onic alcoholic pancreatitis. HOSPITAL COURSE: The patient was admitted to the step-down unit for management of his alcohol withdr awal with benzodiazepine. He did require a Precedex drip, which was weaned off. His withdrawal reso lved and he was treated with IV fluids for his presumed alcohol induced hepatitis and pancreatitis. He does have evidence of chronic pancreatitis on his imaging with extensive calcifications throughout his pancreas. He underwent a video fluoroscopic swallow study due to concerns for aspiration and he did, indeed, have episodes of aspiration with moderate pharyngeal dysmotility. He was placed on a m odified diet with [place] thick liquids. He did have some mild hypoxemia and persistent cough and was started on Augmentin for possible aspiration pneumonia, though his chest x-ray does not reveal an ob vious infiltrate. In addition, due to wheezing, he was treated with a 5-day burst of prednisone. On the day of discharge he was saturating in the 90s on room air and is normotensive. His withdrawal s ymptoms have resolved. He is tolerating a diet. DISPOSITION: 1. The patient is discharged home in stable condition. His plan is to stay with his mother. FOLLOWUP: 1. George Anaya MD, primary care. 2. Outpatient speech therapy is ordered for ongoing evaluation of his aspiration symptoms. He was i nstructed to crush pills and maintain a nectar thick liquid diet. 3. The patient was offered alcohol treatment resources, but he declined this as he states that he whaley s no intention to stop drinking. DISCHARGE MEDICATIONS: Please see MDCapsule for completed outpatient medication list. 1. Albuterol 1 puff inhaled every 4 hours p.r.n. 2. Augmentin 875 mg p.o. b.i.d. for 5 more days. 3. Pepcid 20 mg p.o. b.i.d. #60 with no refills. 4. Creon 1 capsule p.o. t.i.d. #90 with no refills. 5. Prednisone 40 mg p.o. daily #10 with no refills. /[id number]/MODL
--- NOTE | 2017-06-15 18:27 | ASDISCHSUM ---
Discharge Information Plan Status:Home with No Needs Medically Cleared to Leave:06/13/2017 Discharge Date:06/14/2017 01:17 PM CM D/C Disposition:Home, Routine, Self-Care ADT D/C Disposition:Home, Routine, Self-Care Projected Discharge Date:06/14/2017 01:00 PM Transportation at D/C:Self Discharge Delay Reason: Follow-Up Date:06/14/2017 01:00 PM Discharge Slot: Final Diagnosis:ETOH , Hyponatremia, Hypokalemia Placement Information Patient Contact Information Contact Name:LUIS Relationship:Mother Address: Work Phone: City:[place] Alternate Phone: [facility]/Zip Code:[place] [address] Email: Financial Information Financial Class: Primary Plan Desc:[facility] Primary Plan Number:[id number] Secondary Plan Desc: Secondary Plan Number: Assessment Information LACE LACE Acuity / Level of Care Answers: Was the patient admitted to hospital via the emergency department? Yes: Comorbidities - select Answers: Chronic pulmonary disease all that apply Mild liver or renal disease Emergency dept visits in Answers: 1 last 6 months Score: 8 Date Signed: 06/10/2017 05:49 PM Electronically Signed By:Alexandra Hawkins RN [facility] Progress Note CM Note CM Note Notes: 06/11/2017 Case Management Note Met w/pt. Completed CAGE assessment. Pt reports desire to cut back on drinking to just 2 or 3 glasses of wine per day. Denies desire to cut back on pain medications. 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 Pt feels he is drinking to much every day. Pt drinks vodka daily and smokes approx half a pack of cigarettes a day. Pt reports that he has lived recently in [place] with a friend, but recently spent about a month in [place]. He has lived with his sister in the past for about 1.5 years. His Mom is nearby but he feels her house is too cluttered for him to live with her. Pt is not in a relationship at this time and he has no children. He does not have friends in the [place] area to provide housing. Case Management d/c poc: To be determined. Case Management to follow. Date Signed: 06/11/2017 04:11 PM Electronically Signed By:Elizabeth Mancini RN CAGE Questionnaire CAGE Do you feel you ought to Answers: Yes cut down on your drinking or drug use? Do people annoy you by Answers: Yes criticizing your drinking or drug use? Do you feel guilty about Answers: No your drinking or drug use? Do you drink or use drugs Answers: Yes first thing in the morning ([employer])? Date Signed: 06/11/2017 04:06 PM Electronically Signed By:Elizabeth Mancini RN [facility] CM Progress Note CM Note CM Note Notes: Reviewed chart, spoke w/ TIFFANIE Sinha regarding discharge plan, pt's progress. Per TIFFANIE Sinha the pt reports that there is nowhere for him to go when he is discharged. Met w/ pt to discuss discharge options. Pt states his mother lives in [place], but is a "Hoarder," has cats and frequently gets sick; he would rather not stay with her. 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 The pt says he came to [place] to get help for his chronic right hip and back pain. He has been seeing a specialist for injections and is supposed to have surgery in the next few months. 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 Pt does not have any friends in [place] or any friends he can stay with at this time. Pt requesting a short stay in SNF rehab - pt informed he likely would not qualify, as he is able to ambulate without assistance or use of assisted devices and is able to manage all ADLs on his own. Discussed option of a substance abuse program - pt not really interested in quitting drinking at this time, stating "I have been a drinker my whole life." Multiple options presented - [place] [facility]; medical respite (although pt does not qualify due to ETOH abuse and unwillingness to quit); transitional housing programs in [place] and [place]; staying with family/friends; short-term hotel stay; substance abuse rehab. Pt states he does not want to take a Intermediate bed away from someone truly in need; he does not want to stay w/ friends; he does not wish to go to a hotel without his girlfriend and he is not interested in substance abuse rehab or transitional housing. Pt agreed to try a night or two with his mother. CM will cont to follow for any further potential needs. Current discharge plan: Mother's house independently Date Signed: 06/13/2017 06:14 PM Electronically Signed By:Inocencia Adhikari RN Intervention Information
== END 2017-06-14 13:17 | disposition home or self-care (01) | DRG 896 ==
LOC: F2N 20:10 → F1N 06-11 17:36
PROVIDERS: ADMIT Internal Medicine; ATTEND Hospitalist
PROC: HZ2ZZZZ Detoxification Services for Substance Abuse Treatment (ICD-10-PCS; principal; 2017-06-10)
DX: F10.231 Alcohol dependence with withdrawal delirium (principal); J69.0 Pneumonitis due to inhalation of food and vomit; K86.1 Other chronic pancreatitis; K70.10 Alcoholic hepatitis without ascites; E87.1 Hypo-osmolality and hyponatremia; D69.6 Thrombocytopenia, unspecified; E86.0 Dehydration; R91.1 Solitary pulmonary nodule; J45.909 Unspecified asthma, uncomplicated; F17.210 Nicotine dependence, cigarettes, uncomplicated; R73.9 Hyperglycemia, unspecified; R00.0 Tachycardia, unspecified; R09.02 Hypoxemia; M54.5 Low back pain; R05 Cough; Y90.9 Presence of alcohol in blood, level not specified
CPT/HCPCS: 92526-GN; 92610-GN; 92611-GN; 96374; G0480; J2060; J2405; J3411

== ENCOUNTER → 2017-11-23 | Outpatient (CLI) | payer MEDICAID | LOC: FIMAGING 10:14 | PROVIDERS: ATTEND Internal Medicine | DX: N62 Hypertrophy of breast (principal); F10.10 Alcohol abuse, uncomplicated; R16.0 Hepatomegaly, not elsewhere classified; K76.0 Fatty (change of) liver, not elsewhere classified ==

== ENCOUNTER → 2018-03-06 | Outpatient (CLI) | payer MEDICAID | LOC: FIMAGING 11:00 | PROVIDERS: ATTEND Physician Assistant | DX: M51.16 Intervertebral disc disorders with radiculopathy, lumbar region (principal); M48.061 Spinal stenosis, lumbar region without neurogenic claudication ==